=== PATIENT | male | born 1955 | race Hispanic/Latino ===

== ENCOUNTER → 2020-08-21 | Outpatient (CLI) | payer OTHER | END | disposition home or self-care (01) | LOC: RAH 11:57 | PROVIDERS: ATTEND Otolaryngology Plastic Surgery within the Head & Neck | DX: J32.4 Chronic pansinusitis (principal); J34.2 Deviated nasal septum; H66.91 Otitis media, unspecified, right ear | CPT/HCPCS: 70486 ==

== ENCOUNTER 2021-12-09 12:26 | Emergency (ER) | payer MEDICARE ==
[~2021-12-09] VITALS: Ht 182.9 cm; Wt 124.7 kg
[2021-12-09 13:05] LABS: BASOPHILS % (AUTO) 0.6 % (0.0-5.0); EOSINOPHILS % (AUTO) 3.4 % (0.0-8.0); HEMATOCRIT 46.6 % (42-54); LYMPHOCYTES % (AUTO) 17.2 % (21.0-51.0); MEAN CORPUSCULAR HEMOGLOBIN 29.4 pg (27.0-33.0); MEAN CORPUSCULAR VOLUME 92.1 fL (79-99); MONOCYTES % (AUTO) 14.1 % (3.0-13.0); NEUTROPHILS % (AUTO) 64.3 % (40.0-77.0); PLATELET COUNT (AUTO) 175 K/uL (130-400); RED BLOOD CELL COUNT(AUTO) 5.06 MIL/uL (4.50-6.20); RED CELL DISTRIBUTION WIDTH 13.5 % (11.0-15.5); WHITE BLOOD COUNT (AUTO) 10.3 K/uL (4.8-10.8)
[2021-12-09 13:21] LABS: ALBUMIN 3.8 g/dL (3.5-5.0); CREATININE 1.2 mg/dL (0.5-1.5); POTASSIUM 5.1 mmol/L (3.5-5.1); TOTAL PROTEIN, SERUM 8.4 g/dL (6.0-8.3)
[2021-12-09] MEDS ORDERED: IOHEXOL 350 MG/ML 100ML INFUS..BTL IV ONE (15:00)
[2021-12-09 15:49] VITALS: BP 154/90
== END 2021-12-09 16:14 | disposition home or self-care (01) ==
LOC: EDH 12:26
DX: R07.89 Other chest pain (principal); I10 Essential (primary) hypertension
CPT/HCPCS: 99285; 74177; 71045 ×2; 84484; 80053; 85025; 36415; 93005 ×2; Q9967

== ENCOUNTER 2021-12-13 12:36 | Emergency (ER) | payer MEDICARE ==
[~2021-12-13] VITALS: Ht 182.9 cm; Wt 122.5 kg
[2021-12-13 12:37] VITALS: BP 153/83
[2021-12-13 13:01] LABS: APPEARANCE,URINE CLOUDY (CLEAR); BILIRUBIN,URINE NEGATIVE (NEGATIVE); COLOR,URINE YELLOW (YELLOW); GLUCOSE, URINE (UA) NEGATIVE (NEGATIVE); KETONES,URINE NEGATIVE (NEGATIVE); LEUKOCYTE ESTERASE ,URINE NEGATIVE Leu/uL (NEGATIVE); NITRATE,URINE NEGATIVE (NEGATIVE); OCCULT BLOOD,URINE NEGATIVE (NEGATIVE); PROTEIN,URINE 100 mg/dL (NEGATIVE)
[2021-12-13 13:29] LABS: BACTERIA,URINE MOD /HPF (None Seen); HYALINE CASTS, URINE >100 /LPF (0-1 /LPF); MUCUS,URINE MANY LPF (None Seen); SQUAMOUS EPITHELIAL CELL,UR RARE /HPF (0-2)
== END 2021-12-13 13:19 | disposition home or self-care (01) ==
LOC: EDH 12:36
DX: Q79.1 Other congenital malformations of diaphragm (principal); I10 Essential (primary) hypertension
CPT/HCPCS: 81001; 87088

== ENCOUNTER 2022-03-15 14:35 | Observation (INO) | payer OTHER, MEDICARE ==
[~2022-03-15] VITALS: Ht 182.9 cm; Wt 127.9 kg
[2022-03-15 15:04] LABS: BASOPHILS % (AUTO) 0.6 % (0.0-5.0); EOSINOPHILS % (AUTO) 4.4 % (0.0-8.0); HEMATOCRIT 39.2 % (42-54); LYMPHOCYTES % (AUTO) 21.3 % (21.0-51.0); MEAN CORPUSCULAR HEMOGLOBIN 29.6 pg (27.0-33.0); MEAN CORPUSCULAR HGB CONC 30.9 g/dL (32.0-36.0); MEAN CORPUSCULAR VOLUME 95.8 fL (79-99); MONOCYTES % (AUTO) 10.1 % (3.0-13.0); NEUTROPHILS % (AUTO) 63.2 % (40.0-77.0); PLATELET COUNT (AUTO) 261 K/uL (130-400); RED BLOOD CELL COUNT(AUTO) 4.09 MIL/uL (4.50-6.20); RED CELL DISTRIBUTION WIDTH 15.3 % (11.0-15.5); WHITE BLOOD COUNT (AUTO) 8.2 K/uL (4.8-10.8)
[2022-03-15 15:16] LABS: POTASSIUM 4.7 mmol/L (3.5-5.1)
[2022-03-15 15:22] LABS: INR 0.93 (0.85-1.15); PROTHROMBIN TIME 10.2 SEC (9.6-11.6)
[2022-03-15 15:24] LABS: ALBUMIN 3.3 g/dL (3.5-5.0); MAGNESIUM 1.9 mg/dL (1.80-2.40); TOTAL PROTEIN, SERUM 7.1 g/dL (6.0-8.3)
[2022-03-15] MEDS ORDERED: ACETAMINOPHEN 650 MG SUPPOSITORY RC PRN (16:00)
[2022-03-15] MEDS ORDERED: HEPARIN 25,000 UNITS/250ML D5W 250 ML IV SCH (16:00)
[2022-03-15] MEDS ORDERED: ONDANSETRON 4MG INJ IVP PRN (16:00)
[2022-03-15] MEDS ORDERED: MORPHINE 4 MG SYG IVP PRN (16:00)
[2022-03-15] MEDS ORDERED: MORPHINE 2 MG SYG IVP ONE (16:00)
[2022-03-15] MEDS ORDERED: HYDRALAZINE 20MG/ML VIAL IV PRN (16:00)
[2022-03-15] MEDS ORDERED: ACETAMINOPHEN 325 MG TAB PO PRN (16:00)
[2022-03-15] MEDS ORDERED: 0.9%NACL 1000ML 1,000 ML IV SCH (16:00)
[2022-03-15] MEDS ORDERED: ASPIRIN 325MG TAB PO ONE (16:00)
[2022-03-15] MEDS ORDERED: IOHEXOL 350 MG/ML 100ML INFUS..BTL IV ONE (16:28)
[2022-03-15 18:18] LABS: AMPHET/METH SCREEN,URINE NEGATIVE (NEGATIVE); BARBITURATE SCREEN, URINE NEGATIVE (NEGATIVE); BENZODIAZEPINES SCREEN,URINE NEGATIVE (NEGATIVE); CANNABINOID SCREEN,URINE NEGATIVE (NEGATIVE); COCAINE SCREEN,URINE POSITIVE (NEGATIVE); OPIATE SCREEN,URINE NEGATIVE (NEGATIVE); PHENCYCLIDINE SCREEN,URINE NEGATIVE (NEGATIVE)
[2022-03-15 18:37] LABS: APPEARANCE,URINE CLEAR (CLEAR); BILIRUBIN,URINE NEGATIVE (NEGATIVE); COLOR,URINE LIGHT-YELLOW (YELLOW); GLUCOSE, URINE (UA) NEGATIVE (NEGATIVE); KETONES,URINE NEGATIVE (NEGATIVE); LEUKOCYTE ESTERASE ,URINE NEGATIVE Leu/uL (NEGATIVE); NITRATE,URINE NEGATIVE (NEGATIVE); OCCULT BLOOD,URINE NEGATIVE (NEGATIVE); PROTEIN,URINE NEGATIVE (NEGATIVE); UROBILINOGEN,URINE 0.2 mg/dL (0.2-1.0)
[2022-03-15 18:43] LABS: MUCUS,URINE RARE LPF (None Seen); WBC,URINE 0-1 /HPF (0-1)
[2022-03-15] MEDS ORDERED: NITROGLYCERIN 1GM OINT 1 INCH/1GM TD ONE (19:00)
[2022-03-15] MEDS: PANTOPRAZOLE 40 MG/VIAL IVP SCH (20:35)
[2022-03-15] MEDS: METOPROLOL TARTRATE 25 MG TAB PO SCH (20:35)
[2022-03-15] MEDS ORDERED: SIMVASTATIN 20 MG TABLET PO SCH (21:00)
[2022-03-15] MEDS ORDERED: MORPHINE 2 MG SYG IVP PRN (21:30)
[2022-03-16 07:04] LABS: BASOPHILS % (AUTO) 0.7 % (0.0-5.0); EOSINOPHILS % (AUTO) 3.8 % (0.0-8.0); LYMPHOCYTES % (AUTO) 21.1 % (21.0-51.0); MEAN CORPUSCULAR HEMOGLOBIN 29.4 pg (27.0-33.0); MEAN CORPUSCULAR HGB CONC 31.3 g/dL (32.0-36.0); MEAN CORPUSCULAR VOLUME 93.8 fL (79-99); MONOCYTES % (AUTO) 8.8 % (3.0-13.0); NEUTROPHILS % (AUTO) 65.3 % (40.0-77.0); PLATELET COUNT (AUTO) 248 K/uL (130-400); RED BLOOD CELL COUNT(AUTO) 4.05 MIL/uL (4.50-6.20); RED CELL DISTRIBUTION WIDTH 15.2 % (11.0-15.5); WHITE BLOOD COUNT (AUTO) 10.7 K/uL (4.8-10.8)
[2022-03-16 07:25] LABS: CREATININE 0.9 mg/dL (0.5-1.5); MAGNESIUM 2.1 mg/dL (1.80-2.40); PHOSPHORUS 3.3 mg/dL (2.5-4.9); POTASSIUM 5.1 mmol/L (3.5-5.1)
[2022-03-16 07:31] VITALS: BP 136/93
[2022-03-16] MEDS ORDERED: KAYEXALATE 15GM/60ML PO SCH (08:30)
[2022-03-16] MEDS ORDERED: CARV6.25 PO (08:34)
[2022-03-16] MEDS ORDERED: PANT40TA54 PO (08:34)
[2022-03-16] MEDS ORDERED: APIX5TAB PO (08:34)
[2022-03-16] MEDS ORDERED: FOLI0.8C PO (08:34)
[2022-03-16] MEDS ORDERED: ATOR40TA69 PO (08:34)
[2022-03-16] MEDS ORDERED: ASPI-1197 PO (08:34)
[2022-03-16] MEDS ORDERED: TRAZ-185 PO (08:34)
[2022-03-16] MEDS ORDERED: HYDR-3830 PO (08:34)
[2022-03-16] MEDS ORDERED: GABA-529 PO (08:34)
[2022-03-16] MEDS: METOPROLOL TARTRATE 25 MG TAB PO SCH (08:51)
[2022-03-16] MEDS: PANTOPRAZOLE 40 MG/VIAL IVP SCH (08:51)
[2022-03-16] MEDS ORDERED: ASCORBIC ACID 500 MG TAB PO SCH (09:00)
[2022-03-16] MEDS ORDERED: FERROUS GLUCONATE 324 TABLET PO SCH (09:00)
[2022-03-16] MEDS ORDERED: ASPIRIN 81MG CHEW TAB PO SCH (09:00)
== END 2022-03-16 09:10 | disposition home or self-care (01) ==
LOC: EDH 14:35 → INTOOBSV 15:55 → EDHIP 15:55
PROVIDERS: ADMIT Internal Medicine; ATTEND Internal Medicine
DX: R07.89 Other chest pain (principal); I10 Essential (primary) hypertension; E66.9 Obesity, unspecified; K43.9 Ventral hernia without obstruction or gangrene; F17.200 Nicotine dependence, unspecified, uncomplicated; F14.90 Cocaine use, unspecified, uncomplicated; F41.9 Anxiety disorder, unspecified; Z86.711 Personal history of pulmonary embolism; Z79.899 Other long term (current) drug therapy; Z86.73 Personal history of transient ischemic attack (TIA), and cerebral infarction without residual deficits
CPT/HCPCS: 96374; 96361 ×2; 96375; 99285; 82550 ×3; 83735 ×2; 83874 ×3; 84484 ×4; 80053; 83880; 80305; 85025 ×2; 85378; 85610; 85730; 81001; 36415 ×2; 71045; 71270; 93970; 93005; 84145; 96376; 83540; 83550; 84100; 80048; G0378 ×17; J7030; J1644; C9113 ×2; Q9967

== ENCOUNTER → 2022-04-12 | Outpatient (CLI) | payer OTHER, MEDICARE ==
[~2022-04-12] MED LIST: ASPI-1197 PO; ATOR40TA69 PO; CARV6.25 PO; FOLI0.8C PO; GABA-529 PO; HYDR-3830 PO; PANT40TA54 PO; REGADENOSON 0.4 MG/5 ML PF SYG IVP ONE; TRAZ-185 PO
== END | disposition home or self-care (01) ==
LOC: SHCH 08:38
PROVIDERS: ATTEND Internal Medicine Cardiovascular Disease
DX: R07.9 Chest pain, unspecified (principal)
CPT/HCPCS: 78452; 96374; 93017; J2785; A9500 ×2

== ENCOUNTER → 2023-03-14 | Outpatient (CLI) | payer OTHER, MEDICARE ==
[~2023-03-14] MED LIST changes: +IOHEXOL-350 50ML VIAL IV ONE; -REGADENOSON 0.4 MG/5 ML PF SYG IVP ONE
== END | disposition home or self-care (01) ==
LOC: RAH 11:21
PROVIDERS: ATTEND Family Medicine
DX: R51.9 Headache, unspecified (principal); R22.0 Localized swelling, mass and lump, head; Z87.828 Personal history of other (healed) physical injury and trauma
CPT/HCPCS: 70470; Q9967

== ENCOUNTER → 2023-03-24 | Outpatient (CLI) | payer OTHER, MEDICARE ==
[~2023-03-24] MED LIST changes: -IOHEXOL-350 50ML VIAL IV ONE
== END | disposition home or self-care (01) ==
LOC: RAH 11:14
PROVIDERS: ATTEND Family Medicine
DX: M47.22 Other spondylosis with radiculopathy, cervical region (principal)
CPT/HCPCS: 72141

== ENCOUNTER → 2023-08-07 | Outpatient (CLI) | payer OTHER, MEDICARE | END | disposition home or self-care (01) | LOC: SHCH 12:40 | PROVIDERS: ATTEND Internal Medicine Cardiovascular Disease | DX: I07.1 Rheumatic tricuspid insufficiency (principal); I27.20 Pulmonary hypertension, unspecified; I26.99 Other pulmonary embolism without acute cor pulmonale; Z86.711 Personal history of pulmonary embolism | CPT/HCPCS: 93306 ==

== ENCOUNTER 2024-11-17 14:19 | Emergency (ER) | payer OTHER, MEDICAID ==
[~2024-11-17] VITALS: Ht 182.9 cm; Wt 104.3 kg
[~2024-11-17 14:19] MED LIST changes: +ALPR0.5T8 PO; +APIX5TAB PO; -ASPI-1197 PO; +BUSP30TA2 PO; +FLUC100T12 PO; -FOLI0.8C PO; -GABA-529 PO; +GABA300C PO; -HYDR-3830 PO; +LEVO750T68 PO; +LUMA42CA4 PO; +METR-172 PO; +OMEP40CA21 PO; -PANT40TA54 PO; -TRAZ-185 PO; +TRAZ-187 PO
[2024-11-17 15:12] LABS: IMMATURE GRANULOCYTE ABSOLUTE 0.02 K/uL (0-1); NUCLEATED RED BLOOD CELLS 0.0 % (0.0-0.19); PLATELET COUNT (AUTO) 167 K/uL (130-400); RED BLOOD CELL COUNT(AUTO) 5.19 MIL/uL (4.50-6.20); RED CELL DISTRIBUTION WIDTH 17.2 % (11.0-15.5); WHITE BLOOD COUNT (AUTO) 8.2 K/uL (4.8-10.8)
--- NOTE | 2024-11-17 15:18 | EKG ---
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
--- NOTE | 2024-11-17 15:26 | ERN ---
General Chief Complaint: Hypertension Stated Complaint: ELEVATED BP Time Seen by MD: 14:23 Source: patient History of Present Illness Initial Comments Patient is a 68-year-old male coming in complaining of elevated blood pressure. Per patient he noticed his blood pressure in the 190s and decided to come in for further evaluation. Allergies: Coded Allergies: No Known Drug Allergies (Verified Allergy, Unknown, 06/07/21) Home Meds Active Scripts Metronidazole (Metronidazole) 500 Mg Tablet, 500 MG PO Q8H, #21 TAB Prov:MAK MACIAS PA 10/22/24 Levofloxacin (Levaquin 750Mg Tabs) 750 Mg Tablet, 750 MG PO Q24H, #7 TAB Prov:MAK MACIAS 10/22/24 Fluconazole (Fluconazole) 100 Mg Tablet, 400 MG PO DAILY, #7 TAB Prov:MAK MACIAS PA 10/22/24 Reported Medications Alprazolam (Alprazolam) 0.5 Mg Tablet, 1 TAB PO [id number] PRN for ANXIETY/AGITATION for 30 Days, #60 TAB 0 Refills 10/13/24 Trazodone HCl (Trazodone HCl) 100 Mg Tablet, 1 TAB PO HS for 30 Days, #30 TAB 0 Refills 10/13/24 Gabapentin (Neurontin) 300 Mg Capsule, 1 CAP PO TID for 30 Days, #90 CAP 0 Refills 10/13/24 Buspirone HCl (Buspirone HCl) 30 Mg Tablet, 30 MG PO TID, TAB 10/13/24 Omeprazole (Omeprazole) 40 Mg Capsule.dr, 1 CAP PO DAILY for 30 Days, #30 CAP 0 Refills 10/13/24 Lumateperone Tosylate (Caplyta) 42 Mg Capsule, 1 CAP PO DAILY for 30 Days, #30 CAP 0 Refills WITH MEALS 10/13/24 Apixaban (Eliquis) 5 Mg Tablet, 1 TAB PO BID for 30 Days, #60 TAB 0 Refills 10/13/24 Carvedilol (Carvedilol) 6.25 Mg Tablet, 6.25 MG PO BID, TAB 03/16/22 Atorvastatin Calcium (LIPITOR) 40 Mg Tablet, 40 MG PO DAILY, TAB 03/16/22 Past Medical History Past Medical History: Diverticulitis, High Cholesterol, Hypertension Medical History Other: PE, LOWER EXT DVT, PULMONARY HTN, Past Surgical History: None Surgical History Other: HERNIA REPAIR Social History Social History: Negative, Lives with family ROS Dictation CONSTITUTIONAL: No chills, no fever, no weakness, no diaphoresis, no malaise. HEAD/FACE: No signs of trauma. EENT: No eye pain, no blurred vision, no tearing, no double vision, no ear pain, no ear discharge, no nose pain, no nasal congestion, no throat pain, no throat swelling, no mouth pain. RESPIRATORY: No cough, no orthopnea, no SOB, no stridor, no wheezing. CARDIOVASCULAR: No chest pain, no edema, no palpitations, no syncope. GASTROINTESTINAL/ABDOMINAL: No abdominal pain, no constipation, no diarrhea, no nausea, no vomiting. GENITOURINARY: No abnormal discharge, no dysuria, no frequent urination, no hematuria. No complaints of pain in the genitals. MUSCULOSKELETAL: No back pain, no gout, no joint pain, no joint swelling, no muscle pain, no muscle stiffness, no neck pain. INTEGUMENTARY: No change in color, no change in hair/nails, no dryness, no lesion, no lumps, no rash. NEUROLOGICAL/PSYCH: No anxiety, not depressed, no emotional problem, no headache, no numbness, no pre-existing deficit, no history of seizures, no tremors, no weakness. HEMATOLOGIC/LYMPHATIC: Not anemic, no history of blood clots, no apparent bleeding, no bruising, glands not swollen. All Systems Negative, Except as Noted. Physical Exam Physical Exam Dictation VITAL SIGNS: Reviewed. GENERAL APPEARANCE: Alert, oriented x3, no acute distress, obese. HEAD AND FACE: Non-traumatic. EYES: PERRL, pink conjunctivas, eyelid no trauma, anterior chamber clear. EARS: Pinnas intact and no signs of trauma or erythema. Ear canals clear and no discharge. TMs no erythema. NOSE: No discharge, no bleeding. OROPHARYNX: Mouth normal, teeth no caries, tongue pink. Pharynx clear, no erythema. Tonsils no exudates, no abscesses noted. Mucous membrane moist. NECK: Supple, non-tender, no thyromegaly, no masses, no JVD, no bruits. BREAST: Deferred. CHEST: No tenderness, no crepitus, no paradoxical movement, no retractions. LUNGS: Clear, well-ventilated, symmetric, no rales, no wheezing, no rhonchi, no stridor, good breath sounds bilaterally. HEART: Regular rate, regular rhythm, no murmur, no gallops. VASCULAR: No peripheral edema. ABDOMEN: Soft, positive bowel sounds, nondistended, no guarding, nontender, no rebound, no masses no hepatomegaly, no splenomegaly, no Polanco's sign, no hernias. RECTAL: Deferred. GENITAL: Deferred. NEUROLOGICAL: Normal speech, gross motor function intact, gross sensory function intact. MUSCULOSKELETAL: Neck nontender, full range of motion, back nontender, full range of motion. EXTREMITIES: Nontender, full range of motion. SKIN: Color pink, dry, no turgor, no rash, no lacerations, no abrasions, no contusions. LYMPHATICS: Deferred. Results Laboratory and Microbiology Lab and Micro Result Laboratory Tests Test 11/17/24 15:02 11/17/24 15:27 White Blood Count 8.2 K/uL (4.8-10.8) Red Blood Count 5.19 MIL/uL (4.50-6.20) Hemoglobin 15.3 g/dL (14.0-18.0) Hematocrit 47.1 % (42-54) Mean Corpuscular Volume 90.8 fL (79-99) Mean Corpuscular Hemoglobin 29.5 pg (27.0-33.0) Mean Corpuscular Hemoglobin Concent 32.5 g/dL (32.0-36.0) Red Cell Distribution Width 17.2 % (11.0-15.5) H Platelet Count 167 K/uL (130-400) Mean Platelet Volume 12.5 fL (7.5-10.5) H Immature Granulocyte % (Auto) 0.2 % (0-1) Neutrophils (%) (Auto) 68.4 % (40.0-77.0) Lymphocytes (%) (Auto) 18.0 % (21.0-51.0) L Monocytes (%) (Auto) 9.5 % (3.0-13.0) Eosinophils (%) (Auto) 3.2 % (0.0-8.0) Basophils (%) (Auto) 0.7 % (0.0-5.0) Neutrophils # (Auto) 5.6 K/uL (1.8-7.7) Lymphocytes # (Auto) 1.5 K/uL (1.0-4.8) Monocytes # (Auto) 0.8 K/uL (0.1-1.0) Eosinophils # (Auto) 0.26 K/uL (0.00-0.70) Basophils # (Auto) 0.06 K/uL (0.00-0.20) Absolute Immature Granulocyte (auto 0.02 K/uL (0-1) Nucleated Red Blood Cells 0.0 % (0.0-0.19) Sodium Level 140 mmol/L (136-145) Potassium Level 3.5 mmol/L (3.5-5.1) Chloride Level 101 mmol/L (101-111) Carbon Dioxide Level 29 mmol/L (21-32) Blood Urea Nitrogen 12 mg/dL (7-18) Creatinine 0.7 mg/dL (0.5-1.3) Glomerular Filtration Rate Calc 99 mL/min (>90) Random Glucose 99 mg/dL (70-105) Total Calcium 9.0 mg/dL (8.5-10.1) Magnesium Level 1.70 mg/dL (1.80-2.40) L Total Creatine Kinase 198 U/L (21-232) Troponin I High Sensitivity 15 ng/L (4-75) Urine Color YELLOW (YELLOW) Urine Appearance CLEAR (CLEAR) Urine pH 6.0 (5.0-8.0) Urine Specific [place] 1.012 (1.001-1.031) Urine Protein NEGATIVE mg/dL (NEGATIVE) Urine Glucose (UA) NEGATIVE mg/dL (NEGATIVE) Urine Ketones 10 mg/dL (NEGATIVE) H Urine Occult Blood NEGATIVE (NEGATIVE) Urine Nitrate NEGATIVE (NEGATIVE) Urine Bilirubin NEGATIVE mg/dL (NEGATIVE) Urine Urobilinogen 0.2 mg/dL (0.2-1.0) Urine Leukocyte Esterase NEGATIVE Ky/uL Urine RBC 0-1 /HPF (0-1) Urine WBC 0-1 /HPF (0-1) Urine Bacteria None /HPF (None Seen) Labs Reviewed?: Yes EKG/XRAY/US/CT/MRI EKG Comment 11/17/2024 time 3:11 p.m. Ventricular rate 63 Sinus rhythm [place] [address] wave elevation or depression X-RAY Comment IMAGING REPORT Signed PATIENT: OMARI MITCHELL MR#: [id number] : 1955 SEX: M AGE: 68 LOCATION: [facility] ORDER [id number] STATUS: REG ER REPORT#: [id number] SERVICE [id number] REASON: htn ORDERING PHYSICIAN: AJITH STEWARD MD PROCEDURE: CXR1VW - CHEST 1VW EXAM: CR Chest, 1 View. CLINICAL HISTORY: htn COMPARISON: Radiograph dated October 19, 2024 FINDINGS: LUNGS: There is no mass, infiltrate, or acute pulmonary abnormality. Mild bibasilar airspace disease may reflect atelectasis. PLEURAL SPACES: No pleural effusion or pneumothorax. MEDIASTINUM: Cardiac size and mediastinal contours within normal limits. Relatively unchanged elevation of the left hemidiaphragm. BONES: No acute osseous abnormality. IMPRESSION: No acute cardiopulmonary pathology is evident. /[place] DICTATED BY: KARSON SCHMIDT Jr., MD DATE: 11/17/24 163 ELECTRONICALLY SIGNED BY: KARSON SCHMIDT Jr., MD DATE: 11/17/24 163 [facility] MDM: Differential diagnosis: Elevated blood pressure episode, history of hypertension, Rationale: Tests considered and ordered secondary to shared decision making include: Previous outside records reviewed: Old ER visits. Risk of complication and/or morbidity or mortality of patient management: None Medications-Per medication reconciliation Need for hospitalization: Patient does not meet criteria for hospitalization. Need for emergency major/minor surgery: No Patient is a 68-year-old male coming in due to elevated blood pressure. Blood pressure initially was in the 166 systolic laboratory workup within normal limits. I advised him on vital signs and laboratory workup we will be discharged in stable condition I also advised him appropriate follow up with PCP. ED Course Orders Procedure Category Date Status Time Cbc With Differential LAB 11/17/24 Complete 14:48 Chest 1vw RAD 11/17/24 Resulted 14:48 12 Lead Ekg Tracing- EKG 11/17/24 Complete Technical 14:48 Magnesium LAB 11/17/24 Complete 14:48 Creatine Kinase, Total LAB 11/17/24 Complete 14:48 Troponin I High LAB 11/17/24 Complete Sensitivity 14:48 Urinalysis Profile LAB 11/17/24 Complete 14:48 Basic Metabolic Panel LAB 11/17/24 Complete 14:48 Vital Signs Date Time Temp Pulse Resp B/P (MAP) Pulse Ox O2 Delivery O2 Flow Rate FiO2 11/17/24 14:24 97.3 63 19 166/88 95 Room Air 0 DX & DISP Disposition: Discharge Departure Impression: Primary Impression: Episode of hypertension Condition: Stable Additional Instructions: You have been reviewed in the emergency department at [facility] after presenting with chest pain. After considering your history, your risk factors, your EKG and your blood test troponins, have been found to be at very low risk less than (1 in 100) of having a major adverse cardiac event (like heart attack) in the near future. In the " low risk" group, the risks of doing further tests and treatment as the inpatient outweighs the benefits. In many patients in the low risk group for the test of any sort or unnecessary, however he should discuss this further with his general practitioner who will understand the medical and personal backgrounds better. Because we have never declared you" no risk" we would suggest. 1 returning for medical review if you have further episodes of chest pain/arm pain or other concerning symptoms like dizziness, collapse, palpitations or shortness of breath. 2. Following up with your local doctor who will consider the need for further testing and will also ensure that any modifiable risk factors you may have for heart disease are optimally managed. Patient will be discharged in stable condition at the moment discharge patient states , no chest pain Referrals: BECKY GUADALUPE MD (PCP) Time of Disposition: 16:12 AJITH STEWARD MD Nov 17, 2024 15:26
[2024-11-17 15:29] LABS: CREATININE 0.7 mg/dL (0.5-1.3); GLOMERULAR FILTR. RATE CALC 99.0 mL/min (>90); GLUCOSE,RANDOM 99.0 mg/dL (70-105); SODIUM SERUM 140.0 mmol/L (136-145); UREA NITROGEN, BLOOD 12.0 mg/dL (7-18)
--- NOTE | 2024-11-17 15:31 | HMCIMG ---
EXAM: CR Chest, 1 View. CLINICAL HISTORY: htn COMPARISON: Radiograph dated October 19, 2024 FINDINGS: LUNGS: There is no mass, infiltrate, or acute pulmonary abnormality. Mild bibasilar airspace disease may reflect atelectasis. PLEURAL SPACES: No pleural effusion or pneumothorax. MEDIASTINUM: Cardiac size and mediastinal contours within normal limits. Relatively unchanged elevation of the left hemidiaphragm. BONES: No acute osseous abnormality. IMPRESSION: No acute cardiopulmonary pathology is evident. /[place]
[2024-11-17 15:35] LABS: APPEARANCE,URINE CLEAR (CLEAR); GLUCOSE, URINE (UA) NEGATIVE (NEGATIVE); LEUKOCYTE ESTERASE ,URINE NEGATIVE Leu/uL (NEGATIVE); NITRATE,URINE NEGATIVE (NEGATIVE); OCCULT BLOOD,URINE NEGATIVE (NEGATIVE)
[2024-11-17 15:38] LABS: CREATINE KINASE, TOTAL 198.0 U/L (21-232)
[2024-11-17 15:44] LABS: ADD UA MICROSCOPIC YES
[2024-11-17 16:29] VITALS: BP 163/93; PULSE 63; RESP 18; TEMP 98.7; O2SAT 98
--- NOTE | 2024-11-17 16:37 | NUR ---
PT AAOX4 STABLE NO C/O PAIN PT STATES HIS BP IN BETTER THAN IT WAS WHEN HE FIRST GOT HERE. PT GIVEN INSTRUCTIONS BY DR BIN MONCADAED UNDERSTANDING. PT HAS NO IV NOW, PT STATES HE IS HUNGRY WANTS TO GO EAT, GIVEN INSTRUCTIONS. PT DRIVEN HOME BY SPOUSE.
== END 2024-11-17 16:39 | disposition home or self-care (01) ==
LOC: EDH 14:19
DX: I10 Essential (primary) hypertension (principal); E78.00 Pure hypercholesterolemia, unspecified; Z79.01 Long term (current) use of anticoagulants; Z79.899 Other long term (current) drug therapy; Z86.718 Personal history of other venous thrombosis and embolism; Z98.890 Other specified postprocedural states
CPT/HCPCS: 36415; 71045; 80048; 81001; 82550; 82948; 83735; 84484; 85025; 93005; 99285

== ENCOUNTER 2024-12-02 12:00 | Inpatient (IN) | payer OTHER, MEDICAID ==
[~2024-12-02] VITALS: Ht 182.9 cm; Wt 99.8 kg
[~2024-12-02 12:00] MED LIST changes: -FLUC100T12 PO; -LEVO750T68 PO; -LUMA42CA4 PO; -METR-172 PO; -OMEP40CA21 PO
[2024-12-02 12:37] VITALS: BP 111/64; PULSE 75; RESP 17; TEMP 97.3
[2024-12-02 12:37] LABS: IMMATURE GRANULOCYTE ABSOLUTE 0.03 K/uL (0-1); NUCLEATED RED BLOOD CELLS 0.0 % (0.0-0.19); PLATELET COUNT (AUTO) 244 K/uL (130-400); RED BLOOD CELL COUNT(AUTO) 5.34 MIL/uL (4.50-6.20); RED CELL DISTRIBUTION WIDTH 17.0 % (11.0-15.5); WHITE BLOOD COUNT (AUTO) 8.3 K/uL (4.8-10.8)
--- NOTE | 2024-12-02 12:40 | EKG ---
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
[2024-12-02 12:46] LABS: INR 1.09 (0.85-1.15)
[2024-12-02 12:54] LABS: ASPARTATE AMINOTRANSFERASE 37.0 U/L (10-37); CREATININE 0.8 mg/dL (0.5-1.3); GLOMERULAR FILTR. RATE CALC 95.0 mL/min (>90); GLUCOSE,RANDOM 107.0 mg/dL (70-105); SODIUM SERUM 139.0 mmol/L (136-145); TOTAL PROTEIN, SERUM 8.1 g/dL (6.0-8.3); UREA NITROGEN, BLOOD 21.0 mg/dL (7-18)
[2024-12-02] MEDS ORDERED: IRON PO (14:12)
[2024-12-02] MEDS ORDERED: LUMA42CA4 PO (14:12)
[2024-12-02] MEDS ORDERED: PLEC3TAB2 PO (14:12)
[2024-12-02] MEDS ORDERED: NITR0.4T50 SL (14:12)
[2024-12-02] MEDS ORDERED: LINA290C PO (14:12)
[2024-12-02] MEDS ORDERED: CIPR500S4 PO (14:12)
[2024-12-02] MEDS ORDERED: ONDA-243 PO (14:12)
[2024-12-02] MEDS ORDERED: LOSA50TA64 PO (14:12)
--- NOTE | 2024-12-03 12:14 | NUR ---
report dr lemos informed of potassium level. received orders to repeat in am.
--- NOTE | 2024-12-03 15:00 | NUR ---
REPORT REPORTED TO CHRISTIAN THAT PATIENT TOOK ELIQUIS ON 12/02/24 AT 0700. OKAY TO PROCEED WITH SURGERY PER CHRISTIAN.
[2024-12-04] VITALS (20 sets, daily range): BP systolic 129–162; BP diastolic 68–86; PULSE 66–98; RESP 15–21; TEMP 97.7–98.1; O2SAT 98–99
[2024-12-04] MEDS: INVANZ 1GM+NS 50ML IVPB 50 ML IV ONE (07:00)
[2024-12-04] MEDS: LACTATED RINGERS 1000ML 1,000 ML IV ONE (07:02)
[2024-12-04] MEDS ORDERED: LIDOCAINE 1%-EPI 1:100,000 20 ML VIAL ONE (09:29)
[2024-12-04] MEDS ORDERED: SUCCINYLCHOLINE CHLORIDE 20 MG/ML 10 ML VIAL ONE (10:05)
[2024-12-04] MEDS ORDERED: LIDOCAINE PF 100MG/5ML (2%) SYRINGE 5ML ONE (10:05)
[2024-12-04] MEDS ORDERED: MIDAZOLAM HCL 1 MG/ML 2ML VIAL ONE (10:06)
[2024-12-04 10:08] LABS: AMPHET/METH SCREEN,URINE NEGATIVE (NEGATIVE); BARBITURATE SCREEN, URINE NEGATIVE (NEGATIVE); CANNABINOID SCREEN,URINE POSITIVE (NEGATIVE); COCAINE SCREEN,URINE NEGATIVE (NEGATIVE)
[2024-12-04] MEDS: SUGAMMADEX SODIUM 200 MG/2 ML VIAL IV ONE (10:26)
--- NOTE | 2024-12-04 11:44 | OP ---
Operative Note: DATE OF PROCEDURE: 12/04/24 SURGEON: MARINA ABREU MD HAIR AND MAKEUP DESIGNER: [None] ANESTHESIA: [General Endotracheal anesthesia] ANESTHESIOLOGIST/CLOTHING EXAMINER: [] PREOPERATIVE DIAGNOSIS: [Complicated diverticulitis] POSTOPERATIVE DIAGNOSIS: [Complicated diverticulitis. Extensive Adhesions. Omental mass.] SYNOPSIS: [Good blood flow to anastomosis. This was noted on firefly after ICG was injected. No leak from anastomosis. Extensive Adhesions. Omental mass.] PROCEDURE: [1. Robotic low anterior resection. 2. Robotic partial omental resection. 3. IV ICG administration for the anastomosis graft assessment. 4. Flexible sigmoidoscopy. 5. Robotic Extensive Lysis of Adhesions, Greater than 1 hour, extended procedural service atypical for this case.] ESTIMATED BLOOD LOSS: [30 mL] INDICATIONS: [The patient is a very pleasant 68-year-old male presents to the office with complicated diverticulitis. He and his family were offered operative management. The complications, risks alternatives and benefits were discussed with him in detail. Risks include infection, bleeding, injury to surrounding structures, injury to the ureter, need for further surgery, leak from anastomosis, need for stoma, poor bowel function and recurrence of disease. All questions were answered to their satisfaction and they all wished to proceed with the operation.] DESCRIPTION OF PROCEDURE: [The patient is brought to the operating theater and placed supine on the operating table. After appropriate general endotracheal anesthesia was administered and IV antibiotics given the patient is placed in the low lithotomy position. The abdomen was prepped and draped in appropriate sterile surgical fashion. Local anesthetic was injected in the Veress needle was used to insufflate the abdomen. The Optiview technique was then used to enter the abdomen without any injury to surrounding structures. The abdomen was explored and there was no evidence of metastatic disease. Four other trocars were placed under direct visualization without injury. A Pfannenstiel incision was created and the peritoneal cavity was entered and a wound protractor was placed. The robot was docked in the usual sterile fashion. The patient had extensive adhesions from prior surgery. These were lysed with sharp dissection and electrocautery where appropriate. Attention was drawn to the left colon was mobilized along the white line of Toldt. The left ureter was identified and preserved. Superior hemorrhoidal vessels were isolated and stapled. The remainder of the mesentery was ligated with the vessel sealer. The bowel was then transected at the descending colon and the upper rectum. The end-to-side anastomosis was created with the 29 EEA stapler. An amniotic graft was utilized to assist in healing. The firefly was utilized to assure good blood flow to the anastomosis at the time of transsection as well at the time of anastomosis after ICG was injected. Excellent blood flow was noted. There was no complications. Excellent hemostasis was achieved. The anastomosis was tested several times without evidence of leak. A flexible sigmoidoscopy was performed and the anastomosis was intact, not leaking, not bleeding and patent. The omentum was noted to have a mass so this was resected with the vessel sealer achieving a partial omentectomy. A drain was placed in the pelvis. Hemostatic agent was utilized in the abdomen. The fascia was closed with 1. PDS. The fascia for the 12 mm trocar was closed with 0 Vicryl. Skin incisions were closed with Monocryl. There were no complications. The instrument, sponge and needle count reported as correct x2 by nursing staff.] MARINA ABREU MD Dec 04, 2024 11:44
[2024-12-04] MEDS: LIDOCAINE 1%-EPI 1:100,000 20 ML VIAL IJ ONE (11:49)
[2024-12-04] MEDS ORDERED: D5W-1/2 NS/20MEQ KCL 1,000 ML IV SCH (12:00)
[2024-12-04] MEDS: INDOCYANINE GREEN 25 MG VIAL IJ ONE ×2 (13:30→14:27)
[2024-12-04] MEDS: ALBUTEROL 0.083% 2.5 MG/3 ML INH IH SCH (14:00)
--- NOTE | 2024-12-04 17:15 | NUR ---
ARRIVAL TO 3RD PATIENT ARRIVED TO 3RF FLOOR. PATIENT IS STILL UNDER THE EFFECTS OF ANESTHESIA, STUPOROUS. VITAL SIGNS STABLE. NO APPARENT DISTRESS AT THIS TIME. THE PATIENTS ABDOMEN WAS VISUALIZED, 4 INCISIONS CLEAN AND DRY, RAFITA DRAIN INTACT. WILL CONTINUE TO MONITOR
[2024-12-04] MEDS ORDERED: NITROGLYCERIN 0.4 MG SL TAB SL SCH (17:30)
--- NOTE | 2024-12-04 18:40 | CONS ---
[facility] CONSULTATION NOTE Date of Service: Dec 04, 2024 Reason for Consultation: [ Medical Management] Requesting Physician: [ Dr. De Oliveira] HISTORY OF PRESENT ILLNESS: Date of service: 12/04/2024, patient was seen in [facility] [place] room 309 68-year-old male with underlying history of COPD, chronic tobacco use disorder, prior history of pulmonary embolism x2 maintained on chronic anticoagulation with Eliquis, chronic hypoxemic respiratory failure on supplemental O2 therapy, history of gastritis, prior history of perforated diverticulitis in 09/2024 with complicated diverticulitis. 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 Patient was seen postoperatively, patient has expected postoperative abdominal pain. Patient denies any active chest pain or shortness of breath. Abdominal pain is moderate in intensity and patient reports feeling some mild nausea. Patient does have underlying history of hypertension, he has previous history of pulmonary embolism and is maintained on chronic anticoagulation with Eliquis. He is followed by pulmonology in [place]. Reports having had two prior episodes of PE. Last dose of Eliquis was two days ago. Patient reports having his tree of respiratory failure and has been maintained on home oxygen therapy. He has chronic history of significant smoking and smokes about two packs a day. Continue to monitor this patient closely, we will see how patient progresses in the next 24-48 hours. We will have pulmonology follow this patient along due to underlying pulmonary comorbidities. Anticoagulation with Eliquis will be held today as patient just had major intra-abdominal surgery today. We will have Surgical Service follow up on this patient and we will await when patient can be started back on anticoagulation in the next 24-48 hours. REVIEW OF SYSTEMS CONSTITUTIONAL: Denies fevers, chills, or night sweats. No unintentional weight loss reported. NEUROLOGICAL: Denies headache, amaurosis fugax, motor weakness, sensory defic it, vertigo/spinning sensation, gait abnormalities, or tremors. ENT: No hearing loss, otalgia, otorrhea, rhinitis, rhinorrhea, hoarseness, or sore throat. CARDIOVASCULAR: Denies any exertional angina, dyspnea on exertion, orthopnea, paroxysmal nocturnal dyspnea, palpitations, life-threatening arrhythmias, claudication. PULMONARY: Denies any shortness of breath, cough, phlegm/sputum, hemoptysis, pleuritic chest pain. SLEEP: Denies morning headaches, daytime somnolence or napping. Denies difficulty falling asleep, staying asleep, waking from sleep. Denies knowledge of snoring. GASTROINTESTINAL: Postoperative abdominal pain and nausea as expected GENITOURINARY: Denies frequency, urgency, nocturia, hematuria or incontinence (Storage/Irritative symptoms.) Low urinary stream, straining to void, urinary intermittency or hesitancy, splitting of the voiding stream, terminal dribbling. ENDOCRINOLOGIC: Denies polyuria, polydipsia, polyphagia or heat/cold intolerances. HEMATOLOGIC: Denies thrombophilia/previous clots, or coagulopathy/bleeding disorders. ONCOLOGIC: Denies personal history of malignancy. DERMATOLOGIC: Denies rashes or pruritus. PSYCHIATRIC: Denies any suicidal or homicidal ideation. Denies hallucinations. PAST MEDICAL HISTORY: Hypertension, hemorrhoids, arthritis, depression, anxiety, history of bipolar disorder, history of pulmonary embolism maintained on chronic anticoagulation with Eliquis, GERD, gastritis, recent history of complicated diverticulitis in 09/2024, chronic hypoxemic respiratory failure PAST SURGICAL HISTORY: Previous surgeries including abdominal hernia repair, lysis of abdominal adhesions in 07/2022, history of abdominal surgery at the age of 9 PAST SOCIAL HISTORY: Denies active drinking, reports smoking two packs a day for long time FAMILY HISTORY: Denies history of previous GI malignancy Allergies: No known drug allergies Home medications: Linactolide 290 mcg p.o. daily, losartan 50 mg daily, Caplyta 42 mg daily, nitroglycerin PRN, Trulance 3 mg daily, iron tablet 45 mg daily, Xanax 0.5 mg q.12h p.r.n., apixaban 5 mg twice daily, buspirone 30 mg t.i.d., gabapentin 300 mg t.i.d., trazodone 100 mg at bedtime, Lipitor 40 mg daily, carvedilol Coded Allergies: No Known Drug Allergies (Verified Allergy, Unknown, 06/07/21) PHYSICAL EXAM GENERAL APPEARANCE: The patient is awake, alert, currently on 3 L of O2 supplementation by nasal canula NEUROLOGICAL: Cranial nerves II-XII grossly intact. patient is moving both upper and lower extremities with no focal deficits, through exam was not performed as patient is post operative and is having post operative pain HEENT: Face is symmetric. Pupils are equal and reactive. Extraocular movements are intact. NECK: Supple. No JVD. No thyromegaly. No submental, submandibular, pre- /postauricular, occipital or supraclavicular lymphadenopathy. CHEST: Normal chest expansion. No Telemetry. LUNGS: Absence of any rales, rhonchi or any wheezing. CARDIOVASCULAR: Regular. S1 and S2 normal. No appreciable rubs, murmurs or gallops. ABDOMEN: Soft, nontender, and nondistended. There is no rebound, voluntary guarding, or rigidity. : Deferred. No Randall. EXTREMITIES: Non-edematous and not cyanotic. No clubbing. Good capillary refill. SKIN: No skin breakdown. Vital Sign (Last 24 Hours) 12/04/24 17:15 Temp 98.1 Pulse 68 Resp 15 B/P (MAP) 150/81 Pulse Ox 94 O2 Delivery Nasal Cannula O2 Flow Rate 3.0 FiO2 28 LABS: Laboratory: Test 12/04/24 09:53 12/04/24 07:55 Range/Units Urine Opiates Screen NEGATIVE NEGATIVE Urine Barbiturates Screen NEGATIVE NEGATIVE Urine Phencyclidine Screen NEGATIVE NEGATIVE Urine Amphetamines Screen NEGATIVE NEGATIVE Urine Benzodiazepines Screen POSITIVE H NEGATIVE Urine Cocaine Screen NEGATIVE NEGATIVE Urine Marijuana (THC) Screen POSITIVE H NEGATIVE Potassium Level 4.8 3.5-5.1 mmol/L DIAGNOSTICS / RADIOLOGY: SERVICE 1448 REASON: htn ORDERING PHYSICIAN: AJITH STEWARD MD PROCEDURE: CXR1VW - CHEST 1VW EXAM: CR Chest, 1 View. CLINICAL HISTORY: htn COMPARISON: Radiograph dated October 19, 2024 FINDINGS: LUNGS: There is no mass, infiltrate, or acute pulmonary abnormality. Mild bibasilar airspace disease may reflect atelectasis. PLEURAL SPACES: No pleural effusion or pneumothorax. MEDIASTINUM: Cardiac size and mediastinal contours within normal limits. Relatively unchanged elevation of the left hemidiaphragm. BONES: No acute osseous abnormality. IMPRESSION: No acute cardiopulmonary pathology is evident. /Beatrice DICTATED BY: KARSON SCHMIDT Jr., MD DATE: 11/17/24 1631 ELECTRONICALLY SIGNED BY: KARSON SCHMIDT Jr., MD DATE: 11/17/24 1636 ASSESSMENT: Complicated diverticulitis status post robotic low anterior resection with anastomosis, 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 De Oliveira, 12/04/2024 History of chronic hypoxemic respiratory failure on home supplemental O2 therapy, POA History of bipolar disorder, POA History of generalized anxiety disorder, POA History of chronic tobacco use disorder, POA COPD, POA History of pulmonary embolism x2 on chronic anticoagulation with Eliquis, POA Hypertension, POA Hyperlipidemia, POA GERD, POA History of gastritis, POA PLAN: Patient will continue with admission and close monitoring in medical-surgical floor under telemetry monitoring Continue with IV fluids and IV pain control per Colorectal surgery services We will start patient on scheduled Pulmicort and DuoNebs p.r.n. q.6 hours Continue to hold Eliquis today as patient is postoperative We will defer to Surgical Service about resuming Eliquis in the next 24-48 hours, patient does have underlying history of pulmonary embolism previously Due to underlying pulmonary comorbidities, we will have pulmonology follow this patient Continue with antihypertensive therapy with carvedilol 6.25 mg b.i.d., losartan 50 mg daily, we will start patient on IV hydralazine q.6 hours p.r.n. for SBP greater than 170 Continue with p.r.n. antiemetics Continue with rest of the home medications, continue with antipsychotic therapy, continue with Xanax 0.5 mg q.12h PRN to reduce risk of benzodiazepine withdrawal All labs will be repeated in the morning, we will monitor potassium trend closely We will see how patient progresses in the next 24-48 hours Plan of care was discussed with the patient at bedside, Rikki Smith MD Advanced Care Planning: Which of the following were discussed: Hospice care: Yes __ No _X_ Therapeutic options: Yes _X_ No __ Advance directives: Yes _X_ No __ Other discussions: Discussed with who?: Patient Voluntary nature of this service was explained to the patient? Yes _x_ No __ Amount of time spent: 20 minutes RIKKI SMITH MD Dec 04, 2024 18:40
[2024-12-04] MEDS: BUDESONIDE 0.5 MG/2 ML INH IH SCH (18:58)
[2024-12-04] MEDS: DEXTROSE 5 %-0.45 % NACL 1,000 ML IV SCH (19:13)
--- NOTE | 2024-12-04 19:54 | CONS ---
[facility] CONSULTATION NOTE Date Patient Seen: Dec 04, 2024 Time of Visit: 19:53 Supervising Physician:Dr Felipe Santiago Reason for Consultation: [COPD Consulting Physician: [Hospitalist Outpatient Specialists: [ ] Inpatient Consults: [ ] PROBLEM LIST: Acute on chronic respiratory failure, POA COPD, POA O2 dependency, usually uses 2-1/2 L of oxygen per nasal cannula at home Tobacco use, smoked one pack per three days Omental mass, status post robotic partial omental resection, adhesiolysis, and anastomosis 12/04 History of pulmonary embolism, on chronic anticoagulation with Eliquis PLAN: Admit per primary Continue O2 therapy Keep O2 saturation above 90% Incentive spirometry Aspiration precautions Keep head of bed above 30 DuoNeb q.6 Budesonide neb b.i.d. Deep breathing exercises Rest of plan care of primary/surgery HPI: 68-year-old male with past medical history of pulmonary embolism on chronic anticoagulation with Eliquis, COPD on home O2 use, hypertension, hyperlipidemia, chronic tobacco use who presented to ED for a scheduled surgery with Dr. De Oliveira. Apparently patient was diagnosed with complicated diverticulitis with extensive adhesions and omental mass. He presented today for scheduled robotic low anterior resection with omental mass resection, DCS of adhesion, with anastomosis. Intraoperative course was uneventful, without any immediate complication. Was asked to evaluate patient for acute on chronic respiratory failure and COPD management. Patient was seen and examined in his room with no relatives present at bedside. At present patient is currently on2 L of oxygen with O2 saturation of 95%, not in acute respiratory distress, he is hemodynamically stable, GCS 15 , able to answer questions appropriately. Denies any headache, chest pain, shortness of breath, but complains of abdominal tenderness likely related to incision. On auscultation there is mild coarse lung sounds on left lower lung field. Patient is a current day smoker, usually smoked one pack per three days, drinks occasionally, and denies any illicit drug use. PAST MEDICAL HX: see above PAST SURGICAL HX: noncontributory SOCIAL HISTORY: See HPI Coded Allergies: No Known Drug Allergies (Verified Allergy, Unknown, 06/07/21) REVIEW OF SYSTEMS: 12 point ROS reviewed with patient. Pertinent positives mentioned above. Otherwise negative. PHYSICAL EXAM: GENERAL: alert, weak, awake oriented x 3 HEENT: EOMI, Sclera non icteric, moist mucosa NECK: Supple, no JVD, trachea midline LUNGS: Coarse lung sounds left lung aguirre HEART: Regular rate and rhythm. Normal S1 and S2, without murmurs ABD: With abdominal incision, with tenderness EXT: No clubbing cyanosis or edema NEURO: Alert and oriented to person, follows commands Vital Signs (last 8hr) Date Time Temp Pulse Resp B/P (MAP) Pulse Ox O2 Delivery O2 Flow Rate FiO2 12/04/24 19:13 74 195/92 12/04/24 19:07 72 12/04/24 19:06 70 20 N/Cannula Low lpm 2.0 28 12/04/24 17:15 98.1 68 15 150/81 94 Nasal Cannula 3.0 28 12/04/24 17:05 98.1 66 15 154/78 93 Nasal Cannula 3.0 28 12/04/24 16:50 98.1 69 15 160/83 93 Nasal Cannula 3.0 28 12/04/24 16:45 98.1 71 15 155/85 93 Nasal Cannula 3.0 28 12/04/24 16:40 98.1 69 15 152/83 93 Nasal Cannula 3.0 28 12/04/24 16:35 98.1 72 15 140/80 93 Nasal Cannula 3.0 28 12/04/24 16:30 98.1 78 15 152/86 96 Nasal Cannula 3.0 28 12/04/24 16:25 98.1 85 18 147/86 96 Nasal Cannula 3.0 28 12/04/24 16:20 98.1 84 18 157/81 98 Nonrebreathing Mask 10.0 100 12/04/24 16:15 98.1 98 21 155/78 98 Nonrebreathing Mask 10.0 100 12/04/24 16:10 98.1 89 20 160/82 97 Nonrebreathing Mask 10.0 100 12/04/24 16:05 98.1 95 15 162/78 93 Nonrebreathing Mask 10.0 100 12/04/24 16:00 98.1 98 15 155/77 93 Nonrebreathing Mask 10.0 100 LABS: Chemistry Labs: Test 12/04/24 07:55 Range/Units Potassium Level 4.8 3.5-5.1 mmol/L DIAGNOSTICS / RADIOLOGY RESULTS: PLAN NEURO: Minimize central acting medications as possible. Maintain fall precautions, adequate lighting during the day PULMONARY: Supplemental 02 as needed. Maintain aspiration precautions at all times CARDIOVASCULAR: Follow hemodynamics. Vital signs per facility protocol GI & NUTRITION: Continue with nutritional support. Continue stool softeners and laxatives as needed. KIDNEYS & ELECTROLYTES: Strict monitoring of intake, output and overall fluid balance. Avoid nephrotoxic medications to the extent possible. Medications to be dosed according to renal function. Monitor electrolytes and replace as needed ENDOCRINE: Maintain blood glucose between 100-180 at all times. Hypoglycemia protocol in place INFECTIOUS DISEASE: Trend temperature, WBC and procalcitonin level Follow cultures, deescalate antibiotics as soon as possible. Panculture if new onset fever ONCOLOGY/HEMATOLOGY/COAGULATION: Monitor for s/s of bleeding Monitor hemoglobin, coagulation studies as needed SKIN: Pressure ulcer prevention per facility protocol Specialty mattress ORTHO/REHAB: Continue PT/OT Prophylaxis: Continue GI and DVT prophylaxis Code Status: Full Resuscitation Disposition: TBD Supervising physician: NORBERTO Camarillo AGACNP Dec 04, 2024 19:53
[2024-12-04] MEDS: FAMOTIDINE 20MG VIAL IV SCH (20:05)
[2024-12-04] MEDS: GABAPENTIN 300 MG CAPSULE PO SCH (20:05)
[2024-12-05] VITALS (12 sets, daily range): BP systolic 136–156; BP diastolic 77–89; PULSE 63–84; RESP 17–20; TEMP 97.6–98.6; O2SAT 92–98
[2024-12-05] MEDS: HYDROcodone/APAP 5/325 1 TAB TABLET PO PRN (03:14)
[2024-12-05 05:20] LABS: IMMATURE GRANULOCYTE ABSOLUTE 0.05 K/uL (0-1); NUCLEATED RED BLOOD CELLS 0.0 % (0.0-0.19); PLATELET COUNT (AUTO) 198 K/uL (130-400); RED BLOOD CELL COUNT(AUTO) 5.05 MIL/uL (4.50-6.20); RED CELL DISTRIBUTION WIDTH 16.6 % (11.0-15.5); WHITE BLOOD COUNT (AUTO) 10.4 K/uL (4.8-10.8)
[2024-12-05 05:31] LABS: CREATININE 0.7 mg/dL (0.5-1.3); GLOMERULAR FILTR. RATE CALC 99.0 mL/min (>90); GLUCOSE,RANDOM 145.0 mg/dL (70-105); SODIUM SERUM 138.0 mmol/L (136-145); UREA NITROGEN, BLOOD 9.0 mg/dL (7-18)
[2024-12-05] MEDS: (Plecanatide (Trulance) 3 MG) PO SCH (09:00)
[2024-12-05] MEDS: ENOXAPARIN SODIUM 40 MG/0.4 ML SYRINGE SQ SCH (09:17)
--- NOTE | 2024-12-05 10:11 | NUR ---
DCP:HOME Pt currently lives at home alone. Pt does have a cane, walker, wheelchair, and shower chair at home. Pt also has o2 through [employer]. pt does have a provider that goes to his home 3 hrs a day to assist with home management and meals. PCP is Dr. Puneet Smallwood and uses [facility] for any RX needs. At [place] pt will want to go home and family can assist with transportation. Addendum: 12/05/24 at 1013 by HELGA VARGHESE SS Amended: Links added.
--- NOTE | 2024-12-05 11:22 | PN ---
[facility] PROGRESS NOTE Date of Visit: Dec 05, 2024 Time of Visit: 11:20 Events / Notes: [68-year-old male patient with past medical history for hypertension, hyperlipidemia, GERD, and complicated diverticulitis who underwent a robotic low anterior resection, with partial omental resection, IV ICG administration for anastomotic graft assessment, flexible sigmoidoscopy, and extensive lysis of adhesions. Patient is hemodynamically stable. He has tolerated his fluids without any nausea or vomiting. Patient's WBC of 10.4, hemoglobin 14.9, platelets 198. Chemistry unremarkable. Patient is a,a, &o in no acute distress resting in supine position. His respirations are unlabored BBS clear. Abdomen is soft and not distended. Incisions are dry &intact and open to air. Ac drain with serosanguinous output. Encouraged ambulation and I/s exercises. ] Review of Systems: CONSTITUTIONAL: No malaise or change in sensation of wellbeing. ENMT: No rhinorrhea, otorrhea, sinus pain, ear ache. CARDIOVASCULAR: No angina, palpitations, orthopnea or paroxysmal dyspnea. RESPIRATORY: No SOB. GASTROINTESTINAL: No abdominal pain, nausea, vomiting, diarrhea, hematemesis, melena or change in the patient's habitual bowel movements consistency/number. GENITOURINARY: No dysuria, hematuria or change in bladder continence. MUSCULOSKELETAL: No new muscle pain or decrease in muscular strength. No new joint swelling, redness or tenderness. SKIN: No new rash. Physical Exam: GEN: Awake, alert, oriented in person, time and place, and in no acute distress. HEENT: No rhinorrhea. Oral mucosa is pink, moist and within normal limits. CHEST: I Lung auscultation revealed normal breath sounds bilaterally. CARDIAC: Heart sounds are regular. ABD: Soft, non-tender and not distended. No peritoneal signs on palpation. Normal bowel sounds. Incisions are dry and intact open to air with dermabond. Ac drain with serosanguinous output. Randall cath draining clear yellow urine. EXT: No cyanosis or clubbing. No edema. SKIN: Intact. No rashes. JOINTS: No evidence of synovitis or acute arthritis. NEURO: Alert and oriented to name, place and person. No focal motor deficits. Normal speech.. Strength is normal. Vital Signs (last 8hr) Date Time Temp Pulse Resp B/P (MAP) Pulse Ox O2 Delivery O2 Flow Rate FiO2 10/16/25 09:18 140/80 12/05/24 08:00 98.6 70 18 140/88 92 Room Air 1.0 12/05/24 07:21 71 20 N/Cannula Low lpm 2.0 28 12/05/24 04:00 98.2 65 18 156/80 95 Nasal Cannula 1.0 Laboratory: [ ] Laboratory: Test 12/05/24 05:23 12/05/24 04:44 12/04/24 20:30 12/04/24 09:53 Range/Units Whole Blood Glucose 152 H 70-110 MG/DL White Blood Count 10.4 4.8-10.8 K/uL Red Blood Count 5.05 4.50-6.20 MIL/uL Hemoglobin 14.9 14.0-18.0 g/dL Hematocrit 45.4 42-54 % Mean Corpuscular Volume 89.9 79-99 fL Mean Corpuscular Hemoglobin 29.5 27.0-33.0 pg Mean Corpuscular Hemoglobin Concent 32.8 32.0-36.0 g/dL Red Cell Distribution Width 16.6 H 11.0-15.5 % Platelet Count 198 130-400 K/uL Mean Platelet Volume 12.6 H 7.5-10.5 fL Immature Granulocyte % (Auto) 0.5 0-1 % Neutrophils (%) (Auto) 79.1 H 40.0-77.0 % Lymphocytes (%) (Auto) 10.1 L 21.0-51.0 % Monocytes (%) (Auto) 10.2 3.0-13.0 % Eosinophils (%) (Auto) 0.0 0.0-8.0 % Basophils (%) (Auto) 0.1 0.0-5.0 % Neutrophils # (Auto) 8.3 H 1.8-7.7 K/uL Lymphocytes # (Auto) 1.1 1.0-4.8 K/uL Monocytes # (Auto) 1.1 H 0.1-1.0 K/uL Eosinophils # (Auto) 0.00 0.00-0.70 K/uL Basophils # (Auto) 0.01 0.00-0.20 K/uL Absolute Immature Granulocyte (auto 0.05 0-1 K/uL Nucleated Red Blood Cells 0.0 0.0-0.19 % Sodium Level 138 136-145 mmol/L Potassium Level 4.3 3.5-5.1 mmol/L Chloride Level 102 101-111 mmol/L Carbon Dioxide Level 31 21-32 mmol/L Blood Urea Nitrogen 9 7-18 mg/dL Creatinine 0.7 0.5-1.3 mg/dL Glomerular Filtration Rate Calc 99 >90 mL/min Random Glucose 145 H 70-105 mg/dL Total Calcium 8.8 8.5-10.1 mg/dL Bedside Glucose Comment Notified Nurse Urine Opiates Screen NEGATIVE NEGATIVE Urine Barbiturates Screen NEGATIVE NEGATIVE Urine Phencyclidine Screen NEGATIVE NEGATIVE Urine Amphetamines Screen NEGATIVE NEGATIVE Urine Benzodiazepines Screen POSITIVE H NEGATIVE Urine Cocaine Screen NEGATIVE NEGATIVE Urine Marijuana (THC) Screen POSITIVE H NEGATIVE Current Medications Medications (Trade) Dose Ordered Sig/Iglesia Route PRN Reason Start Time Stop Time Status Last Admin Dose Admin Acetaminophen (TYLenol 325MG TAB) 650 mg Q4H PRN PO TEMPERATURE GREATER THAN 101 12/04/24 12:00 01/03/25 11:59 Acetaminophen/ Hydrocodone Bitart (NORco 5/325MG) 1 tab Q4H PRN PO MODERATE PAIN (4-6) 12/04/24 12:00 12/09/24 11:59 12/05/24 03:14 1 TAB Albuterol (DUOneb) 1 udvial Q6H PRN IH SHORTNESS OF BREATH 12/04/24 18:00 01/03/25 17:59 12/04/24 18:58 1 UDVIAL Albuterol Sulfate (Proventil 0.083% 2.5mg/3ml) 2.5 mg TID IH 12/04/24 14:00 01/03/25 13:59 12/05/24 07:15 2.5 MG Alprazolam (XANax 0.5MG) 0.5 mg Q12H PRN PO ANXIETY/AGITATION 12/04/24 17:30 01/03/25 17:29 12/05/24 09:17 0.5 MG Atorvastatin Calcium (LIPItor 40MG) 40 mg DAILY PO 12/05/24 09:00 01/04/25 08:59 12/05/24 09:18 40 MG Budesonide (Pulmicort 0.5 Mg/2ml) 0.5 mg BIDRESP IH 12/04/24 18:00 01/03/25 17:59 12/05/24 07:15 0.5 MG Buspirone HCl (BUspar) 30 mg TID PO 12/04/24 21:00 01/03/25 20:59 12/05/24 09:18 30 MG Carvedilol (Coreg 6.25MG) 6.25 mg BID PO 12/04/24 21:00 01/03/25 20:59 12/05/24 09:18 6.25 MG Dextrose/Sodium Chloride 1,000 ml @ 75 mls/hr [id number] IV 12/04/24 18:30 01/03/25 18:29 12/04/24 19:13 75 MLS/HR Enoxaparin Sodium (Lovenox) 40 mg DAILY SQ 12/05/24 09:00 01/04/25 08:59 12/05/24 09:17 40 MG Famotidine (Pepcid 20mg Vial) 20 mg BID IV 12/04/24 21:00 01/03/25 20:59 12/05/24 09:16 20 MG Gabapentin (NEURontin 300 MG CAP) 300 mg TID PO 12/04/24 21:00 01/03/25 20:59 12/04/24 20:05 300 MG Home Med (Home Medication) (Lumateperone Tosylate (Caplyta)... AM PO 12/05/24 09:00 01/04/25 08:59 12/05/24 09:00 1 EACH Home Med (Home Medication) (Plecanatide (Trulance) 3 MG) AM PO 12/05/24 09:00 01/04/25 08:59 Hydralazine HCl (APRESOLine 20MG INJ) 10 mg Q6H PRN IV ADMINISTER FOR SBP > 170 12/04/24 18:00 01/03/25 17:59 12/04/24 19:13 10 MG Insulin Human Regular (humuLIN R 100 UNIT/ML 3ML) AD PRN SQ SLIDING SCALE COVERAGE 12/04/24 12:00 01/03/25 11:59 Ipratropium [place] (AtrovENT UD) 0.5 mg TID IH 12/04/24 14:00 01/03/25 13:59 12/05/24 07:15 0.5 MG Losartan Potassium (CozAAR 50 mg TAB) 50 mg AM PO 12/05/24 09:00 01/04/25 08:59 12/05/24 09:18 50 MG Morphine Sulfate (morPHINE 4MG SYG) 2 mg Q3H PRN IV MODERATE PAIN (4-6) IF NPO 12/04/24 12:00 12/11/24 11:59 12/05/24 01:03 2 MG Morphine Sulfate (morPHINE 4MG SYG) 4 mg Q3H PRN IV SEVERE PAIN (7-10) IF NPO 12/04/24 12:00 12/11/24 11:59 12/05/24 09:15 4 MG Nitroglycerin (Nitrostat) 0.4 mg AD SL 12/04/24 17:30 01/03/25 17:29 Ondansetron HCl (zoFRAN 4MG INJ) 4 mg Q4H PRN IVP NAUSEA 12/04/24 12:00 01/03/25 11:59 12/05/24 05:52 4 MG Potassium Chloride/Dextrose/ Sod Cl 1,000 ml @ 75 mls/hr [id number] IV 12/04/24 12:00 12/04/24 18:16 DC Trazodone HCl (DesyREL/OlepTRO) 100 mg HS PO 12/04/24 21:00 01/03/25 20:59 12/04/24 20:05 100 MG Diagnostics / Radiology: [COPY/PASTE HERE IF NO REPORTS PLEASE DELETE SECTION] Assessment: [ Complicated diverticulitis Hypertension GERD Hyperlipidemia ] Plan: Plan: [Advance diet as tolerated Randall to be removed Encourage ambulation Encourage I/S exercises Pain meds as needed Antiemetics prn Plan for disposition in the next 24 - 48 hours from colorectal standpoint Please call with questions, concerns, and change in clinical status Appreciate hospitalist's assistance in this patient's care ] ] CHERI ROBERTO Dec 05, 2024 11:22
--- NOTE | 2024-12-05 12:37 | PN ---
[facility] PROGRESS NOTE Date Patient Seen: Dec 05, 2024 Time of Visit: 12:37 Supervising Physician: Dr. Dennis Edwards Consulting Physician: [Hospitalist Outpatient Specialists: [ ] Inpatient Consults: [ ] PROBLEM LIST: Acute on chronic respiratory failure, POA COPD, POA O2 dependency, usually uses 2-1/2 L of oxygen per nasal cannula at home Tobacco use, smoked one pack per three days Omental mass, status post robotic partial omental resection, adhesiolysis, and anastomosis 12/04 History of pulmonary embolism, on chronic anticoagulation with Eliquis PLAN: Admit per primary Continue O2 therapy Keep O2 saturation above 90% Incentive spirometry Aspiration precautions Keep head of bed above 30 DuoNeb q.6 Budesonide neb b.i.d. Deep breathing exercises Rest of plan care of primary/surgery INTERVAL HISTORY: 12/05-assessed and seen patient while resting in bed with head of the bed eleva phillip. Awake, alert, and oriented. Accompanied by patient's bedside nurse. Reviewed and discussed with patient laboratory results, vital signs, patient's health history, and medication use and treatment. Patient reports using home oxygen. Patient's vital signs are stable. Patient is afebrile. A.m. labs ordered. REVIEW OF SYSTEMS: 12 point ROS reviewed with patient. Pertinent positives mentioned above. Otherwise negative. PHYSICAL EXAM: GENERAL: alert, weak, awake oriented x 3 HEENT: EOMI, Sclera non icteric, moist mucosa NECK: Supple, no JVD, trachea midline LUNGS: Coarse lung sounds left lung aguirre HEART: Regular rate and rhythm. Normal S1 and S2, without murmurs ABD: With abdominal incision, with tenderness supported by abdominal binder. EXT: No clubbing cyanosis or edema NEURO: Alert and oriented to person, follows commands Vital Signs (last 8hr) Date Time Temp Pulse Resp B/P (MAP) Pulse Ox O2 Delivery O2 Flow Rate FiO2 12/05/24 12:00 97.9 72 18 136/82 94 Room Air 12/05/24 09:18 140/80 12/05/24 08:00 98.6 70 18 140/88 92 Room Air 1.0 12/05/24 07:21 71 20 N/Cannula Low lpm 2.0 28 LABS: Hematology Labs: Test 12/05/24 04:44 Range/Units White Blood Count 10.4 4.8-10.8 K/uL Red Blood Count 5.05 4.50-6.20 MIL/uL Hemoglobin 14.9 14.0-18.0 g/dL Hematocrit 45.4 42-54 % Mean Corpuscular Volume 89.9 79-99 fL Mean Corpuscular Hemoglobin 29.5 27.0-33.0 pg Mean Corpuscular Hemoglobin Concent 32.8 32.0-36.0 g/dL Red Cell Distribution Width 16.6 H 11.0-15.5 % Platelet Count 198 130-400 K/uL Mean Platelet Volume 12.6 H 7.5-10.5 fL Immature Granulocyte % (Auto) 0.5 0-1 % Neutrophils (%) (Auto) 79.1 H 40.0-77.0 % Lymphocytes (%) (Auto) 10.1 L 21.0-51.0 % Monocytes (%) (Auto) 10.2 3.0-13.0 % Eosinophils (%) (Auto) 0.0 0.0-8.0 % Basophils (%) (Auto) 0.1 0.0-5.0 % Neutrophils # (Auto) 8.3 H 1.8-7.7 K/uL Lymphocytes # (Auto) 1.1 1.0-4.8 K/uL Monocytes # (Auto) 1.1 H 0.1-1.0 K/uL Eosinophils # (Auto) 0.00 0.00-0.70 K/uL Basophils # (Auto) 0.01 0.00-0.20 K/uL Absolute Immature Granulocyte (auto 0.05 0-1 K/uL Nucleated Red Blood Cells 0.0 0.0-0.19 % Chemistry Labs: Test 12/05/24 11:32 12/05/24 04:44 12/04/24 20:30 Range/Units Whole Blood Glucose 124 H 70-110 MG/DL Sodium Level 138 136-145 mmol/L Potassium Level 4.3 3.5-5.1 mmol/L Chloride Level 102 101-111 mmol/L Carbon Dioxide Level 31 21-32 mmol/L Blood Urea Nitrogen 9 7-18 mg/dL Creatinine 0.7 0.5-1.3 mg/dL Glomerular Filtration Rate Calc 99 >90 mL/min Random Glucose 145 H 70-105 mg/dL Total Calcium 8.8 8.5-10.1 mg/dL Bedside Glucose Comment Notified Nurse DIAGNOSTICS / RADIOLOGY RESULTS: [ ] PLAN NEURO: Minimize central acting medications as possible. Maintain fall precautions, adequate lighting during the day PULMONARY: Supplemental 02 as needed. Maintain aspiration precautions at all times CARDIOVASCULAR: Follow hemodynamics. Vital signs per facility protocol GI & NUTRITION: Continue with nutritional support. Continue stool softeners and laxatives as needed. KIDNEYS & ELECTROLYTES: Strict monitoring of intake, output and overall fluid balance. Avoid nephrotoxic medications to the extent possible. Medications to be dosed according to renal function. Monitor electrolytes and replace as needed ENDOCRINE: Maintain blood glucose between 100-180 at all times. Hypoglycemia protocol in place INFECTIOUS DISEASE: Trend temperature, WBC and procalcitonin level Follow cultures, deescalate antibiotics as soon as possible. Panculture if new onset fever ONCOLOGY/HEMATOLOGY/COAGULATION: Monitor for s/s of bleeding Monitor hemoglobin, coagulation studies as needed SKIN: Pressure ulcer prevention per facility protocol Specialty mattress ORTHO/REHAB: Continue PT/OT Prophylaxis: Continue GI and DVT prophylaxis Code Status: Full Resuscitation [facility] Dec 05, 2024 12:37
--- NOTE | 2024-12-05 12:44 | PN ---
[facility] PROGRESS NOTE Date of Service: Dec 05, 2024 Time of Service: 12:[address] Cano SUBJECTIVE: [ 12/04 68-year-old male with underlying history of COPD, chronic tobacco use disorder, prior history of pulmonary embolism x2 maintained on chronic anticoagulation with Eliquis, chronic hypoxemic respiratory failure on supplemental O2 therapy, history of gastritis, prior history of perforated diverticulitis in 09/2024 with complicated diverticulitis. 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 Patient was seen postoperatively, patient has expected postoperative abdominal pain. Patient denies any active chest pain or shortness of breath. Abdominal pain is moderate in intensity and patient reports feeling some mild nausea. Patient does have underlying history of hypertension, he has previous history of pulmonary embolism and is maintained on chronic anticoagulation with Eliquis. He is followed by pulmonology in [place]. Reports having had two prior episodes of PE. Last dose of Eliquis was two days ago. Patient reports having his tree of respiratory failure and has been maintained on home oxygen therapy. He has chronic history of significant smoking and smokes about two packs a day.Continue to monitor this patient closely, we will see how patient progresses in the next 24-48 hours. We will have pulmonology follow this patient along due to underlying pulmonary comorbidities. Anticoagulation with Eliquis will be held today as patient just had major intra-abdominal surgery today. We will have Surgical Service follow up on this patient and we will await when patient can be started back on anticoagulation in the next 24-48 hours. 12/05 patient was seen by nurse practitioner physician during rounding in room 309. 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 Patient was evaluated by the GI at this moment they recommend advance diet as tolerated, ambulate, incentive spirometer exercise, anticipated discharge within 24 to 48 hours. Patient stated that he already has a provider at home 3 hours each day seven days a week. All labs and radiology was reviewed by LEAD MANUFACTURING TECHNICIAN. PT was consulted to workup with the patient. We will continue to monitor patient in th e meantime. A.m. labs] REVIEW OF SYSTEMS CONSTITUTIONAL: Denies fevers, chills, or night sweats. No unintentional weight loss reported. NEUROLOGICAL: Denies headache, amaurosis fugax, motor weakness, sensory deficit, vertigo/spinning sensation, gait abnormalities, or tremors. ENT: No hearing loss, otalgia, otorrhea, rhinitis, rhinorrhea, hoarseness, or sore throat. CARDIOVASCULAR: Denies any exertional angina, dyspnea on exertion, orthopnea, paroxysmal nocturnal dyspnea, palpitations, life-threatening arrhythmias, claudication. PULMONARY: Denies any shortness of breath, cough, phlegm/sputum, hemoptysis, pleuritic chest pain. SLEEP: Denies morning headaches, daytime somnolence or napping. Denies difficulty falling asleep, staying asleep, waking from sleep. Denies knowledge of snoring. GASTROINTESTINAL: Postoperative abdominal pain and nausea as expected GENITOURINARY: Denies frequency, urgency, nocturia, hematuria or incontinence (Storage/Irritative symptoms.) Low urinary stream, straining to void, urinary intermittency or hesitancy, splitting of the voiding stream, terminal dribbling. ENDOCRINOLOGIC: Denies polyuria, polydipsia, polyphagia or heat/cold intolerances. HEMATOLOGIC: Denies thrombophilia/previous clots, or coagulopathy/bleeding disorders. ONCOLOGIC: Denies personal history of malignancy. DERMATOLOGIC: Denies rashes or pruritus. PSYCHIATRIC: Denies any suicidal or homicidal ideation. Denies hallucinations. PHYSICAL EXAM GENERAL APPEARANCE: The patient is awake, alert, currently on 3 L of O2 supplementation by nasal canula NEUROLOGICAL: Cranial nerves II-XII grossly intact. patient is moving both upper and lower extremities with no focal deficits, through exam was not performed as patient is post operative and is having post operative pain HEENT: Face is symmetric. Pupils are equal and reactive. Extraocular movements are intact. NECK: Supple. No JVD. No thyromegaly. No submental, submandibular, pre- /postauricular, occipital or supraclavicular lymphadenopathy. CHEST: Normal chest expansion. No Telemetry. LUNGS: Absence of any rales, rhonchi or any wheezing. CARDIOVASCULAR: Regular. S1 and S2 normal. No appreciable rubs, murmurs or gallops. ABDOMEN: Soft, nontender, and nondistended. There is no rebound, voluntary guarding, or rigidity. : Deferred. No Randall. EXTREMITIES: Non-edematous and not cyanotic. No clubbing. Good capillary refill. SKIN: No skin breakdown. Vital Signs (last 8hr) Date Time Temp Pulse Resp B/P (MAP) Pulse Ox O2 Delivery O2 Flow Rate FiO2 12/05/24 12:00 97.9 72 18 136/82 94 Room Air 12/05/24 09:18 140/80 12/05/24 08:00 98.6 70 18 140/88 92 Room Air 1.0 12/05/24 07:21 71 20 N/Cannula Low lpm 2.0 28 LABS: Laboratory: Test 12/05/24 11:32 12/05/24 04:44 12/04/24 20:30 12/04/24 09:53 Range/Units Whole Blood Glucose 124 H 70-110 MG/DL White Blood Count 10.4 4.8-10.8 K/uL Red Blood Count 5.05 4.50-6.20 MIL/uL Hemoglobin 14.9 14.0-18.0 g/dL Hematocrit 45.4 42-54 % Mean Corpuscular Volume 89.9 79-99 fL Mean Corpuscular Hemoglobin 29.5 27.0-33.0 pg Mean Corpuscular Hemoglobin Concent 32.8 32.0-36.0 g/dL Red Cell Distribution Width 16.6 H 11.0-15.5 % Platelet Count 198 130-400 K/uL Mean Platelet Volume 12.6 H 7.5-10.5 fL Immature Granulocyte % (Auto) 0.5 0-1 % Neutrophils (%) (Auto) 79.1 H 40.0-77.0 % Lymphocytes (%) (Auto) 10.1 L 21.0-51.0 % Monocytes (%) (Auto) 10.2 3.0-13.0 % Eosinophils (%) (Auto) 0.0 0.0-8.0 % Basophils (%) (Auto) 0.1 0.0-5.0 % Neutrophils # (Auto) 8.3 H 1.8-7.7 K/uL Lymphocytes # (Auto) 1.1 1.0-4.8 K/uL Monocytes # (Auto) 1.1 H 0.1-1.0 K/uL Eosinophils # (Auto) 0.00 0.00-0.70 K/uL Basophils # (Auto) 0.01 0.00-0.20 K/uL Absolute Immature Granulocyte (auto 0.05 0-1 K/uL Nucleated Red Blood Cells 0.0 0.0-0.19 % Sodium Level 138 136-145 mmol/L Potassium Level 4.3 3.5-5.1 mmol/L Chloride Level 102 101-111 mmol/L Carbon Dioxide Level 31 21-32 mmol/L Blood Urea Nitrogen 9 7-18 mg/dL Creatinine 0.7 0.5-1.3 mg/dL Glomerular Filtration Rate Calc 99 >90 mL/min Random Glucose 145 H 70-105 mg/dL Total Calcium 8.8 8.5-10.1 mg/dL Bedside Glucose Comment Notified Nurse Urine Opiates Screen NEGATIVE NEGATIVE Urine Barbiturates Screen NEGATIVE NEGATIVE Urine Phencyclidine Screen NEGATIVE NEGATIVE Urine Amphetamines Screen NEGATIVE NEGATIVE Urine Benzodiazepines Screen POSITIVE H NEGATIVE Urine Cocaine Screen NEGATIVE NEGATIVE Urine Marijuana (THC) Screen POSITIVE H NEGATIVE Current Medications Medications (Trade) Dose Ordered Sig/Iglesia Route PRN Reason Start Time Stop Time Status Last Admin Dose Admin Acetaminophen (TYLenol 325MG TAB) 650 mg Q4H PRN PO TEMPERATURE GREATER THAN 101 12/04/24 12:00 01/03/25 11:59 Acetaminophen/ Hydrocodone Bitart (NORco 5/325MG) 1 tab Q4H PRN PO MODERATE PAIN (4-6) 12/04/24 12:00 12/09/24 11:59 12/05/24 03:14 1 TAB Albuterol (DUOneb) 1 udvial Q6H PRN IH SHORTNESS OF BREATH 12/04/24 18:00 01/03/25 17:59 12/04/24 18:58 1 UDVIAL Albuterol Sulfate (Proventil 0.083% 2.5mg/3ml) 2.5 mg TID IH 12/04/24 14:00 01/03/25 13:59 12/05/24 07:15 2.5 MG Alprazolam (XANax 0.5MG) 0.5 mg Q12H PRN PO ANXIETY/AGITATION 12/04/24 17:30 01/03/25 17:29 12/05/24 09:17 0.5 MG Atorvastatin Calcium (LIPItor 40MG) 40 mg DAILY PO 12/05/24 09:00 01/04/25 08:59 10/16/25 09:18 40 MG Budesonide (Pulmicort 0.5 Mg/2ml) 0.5 mg BIDRESP IH 12/04/24 18:00 01/03/25 17:59 12/05/24 07:15 0.5 MG Buspirone HCl (BUspar) 30 mg TID PO 12/04/24 21:00 01/03/25 20:59 12/05/24 09:18 30 MG Carvedilol (Coreg 6.25MG) 6.25 mg BID PO 12/04/24 21:00 01/03/25 20:59 12/05/24 09:18 6.25 MG Dextrose/Sodium Chloride 1,000 ml @ 75 mls/hr [id number] IV 12/04/24 18:30 01/03/25 18:29 12/04/24 19:13 75 MLS/HR Enoxaparin Sodium (Lovenox) 40 mg DAILY SQ 12/05/24 09:00 01/04/25 08:59 12/05/24 09:17 40 MG Famotidine (Pepcid 20mg Vial) 20 mg BID IV 12/04/24 21:00 01/03/25 20:59 12/05/24 09:16 20 MG Gabapentin (NEURontin 300 MG CAP) 300 mg TID PO 12/04/24 21:00 01/03/25 20:59 12/04/24 20:05 300 MG Home Med (Home Medication) (Lumateperone Tosylate (Caplyta)... AM PO 12/05/24 09:00 01/04/25 08:59 12/05/24 09:00 1 EACH Home Med (Home Medication) (Plecanatide (Trulance) 3 MG) AM PO 12/05/24 09:00 01/04/25 08:59 Hydralazine HCl (APRESOLine 20MG INJ) 10 mg Q6H PRN IV ADMINISTER FOR SBP > 170 12/04/24 18:00 01/03/25 17:59 12/04/24 19:13 10 MG Insulin Human Regular (humuLIN R 100 UNIT/ML 3ML) AD PRN SQ SLIDING SCALE COVERAGE 12/04/24 12:00 01/03/25 11:59 Ipratropium [place] (AtrovENT UD) 0.5 mg TID IH 12/04/24 14:00 01/03/25 13:59 12/05/24 07:15 0.5 MG Losartan Potassium (CozAAR 50 mg TAB) 50 mg AM PO 12/05/24 09:00 01/04/25 08:59 12/05/24 09:18 50 MG Morphine Sulfate (morPHINE 4MG SYG) 2 mg Q3H PRN IV MODERATE PAIN (4-6) IF NPO 12/04/24 12:00 12/11/24 11:59 12/05/24 01:03 2 MG Morphine Sulfate (morPHINE 4MG SYG) 4 mg Q3H PRN IV SEVERE PAIN (7-10) IF NPO 12/04/24 12:00 12/11/24 11:59 12/05/24 09:15 4 MG Nitroglycerin (Nitrostat) 0.4 mg AD SL 12/04/24 17:30 01/03/25 17:29 Ondansetron HCl (zoFRAN 4MG INJ) 4 mg Q4H PRN IVP NAUSEA 12/04/24 12:00 01/03/25 11:59 12/05/24 05:52 4 MG Potassium Chloride/Dextrose/ Sod Cl 1,000 ml @ 75 mls/hr [id number] IV 12/04/24 12:00 12/04/24 18:16 DC Trazodone HCl (DesyREL/OlepTRO) 100 mg HS PO 12/04/24 21:00 01/03/25 20:59 12/04/24 20:05 100 MG DIAGNOSTICS / RADIOLOGY: [ ] ASSESSMENT: Complicated diverticulitis status post robotic low anterior resection with anastomosis, 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 De Oliveira, 12/04/2024 History of chronic hypoxemic respiratory failure on home supplemental O2 therapy, POA History of bipolar disorder, POA History of generalized anxiety disorder, POA History of chronic tobacco use disorder, POA COPD, POA History of pulmonary embolism x2 on chronic anticoagulation with Eliquis, POA Hypertension, POA Hyperlipidemia, POA GERD, POA History of gastritis, POA PLAN: Patient is s/p robotic low anterior resection, robotic partial omental resection secondary to omental mass, adhesiolysis and anastomosis on 12/04/2024. Patient was evaluated by the GI at this moment they recommend advance diet as tolerated, ambulate, incentive spirometer exercise, anticipated discharge within 24 to 48 hours. Patient stated that he already has a provider at home 3 hours each day seven days a week. All labs and radiology was reviewed by LEAD MANUFACTURING TECHNICIAN. PT was consulted to workup with the patient. We will continue to monitor patient in the meantime. A.m. labs Patient will continue with admission and close monitoring in medical-surgical floor under telemetry monitoring We will start patient on scheduled Pulmicort and DuoNebs p.r.n. q.6 hours Continue to hold Eliquis today as patient is postoperative We will defer to Surgical Service about resuming Eliquis in the next 24-48 hours, patient does have underlying history of pulmonary embolism previously Due to underlying pulmonary comorbidities, we will have pulmonology follow this patient Continue with antihypertensive therapy with carvedilol 6.25 mg b.i.d., losartan 50 mg daily, we will start patient on IV hydralazine q.6 hours p.r.n. for SBP greater than 170 Continue with p.r.n. antiemetics Plan of care was discussed with the patient at bedside, ATTESTATION BY PHYSICIAN I have seen and examined the patient. I reviewed the documentation, medical decision making, and treatment plan as noted by the mid-level provider above. I agree with the findings and plan of care. Raul Cano IV, MD, [facility] Dec 05, 2024 12:44
--- NOTE | 2024-12-05 19:19 | NUR ---
Upon pt request for pain medication which was administered he requested his psychoactive medications which I explained to him were scheduled for 2100. He stated that if he was not given his psychoactive medications he was going to go all out of whack and stated "I am bipolar, I hope you know that" I then educated pt that medications could only be administered 1 hour before and 1 hour after. Pt stated I better be careful that once he goes "all out of whack he will start throwing things across the room and shouting like crazy". Reinforced that pt will receive psychoactive medications at set time and pt huffed and verbalized understanding.
[2024-12-06] VITALS (12 sets, daily range): BP systolic 127–158; BP diastolic 69–97; PULSE 58–68; RESP 18–20; TEMP 97.5–98.2; O2SAT 95–99
[2024-12-06 05:20] LABS: IMMATURE GRANULOCYTE ABSOLUTE 0.02 K/uL (0-1); NUCLEATED RED BLOOD CELLS 0.0 % (0.0-0.19); PLATELET COUNT (AUTO) 171 K/uL (130-400); RED BLOOD CELL COUNT(AUTO) 4.77 MIL/uL (4.50-6.20); RED CELL DISTRIBUTION WIDTH 17.0 % (11.0-15.5); WHITE BLOOD COUNT (AUTO) 9.5 K/uL (4.8-10.8)
[2024-12-06 05:48] LABS: ASPARTATE AMINOTRANSFERASE 26.0 U/L (10-37); CREATININE 0.8 mg/dL (0.5-1.3); GLOMERULAR FILTR. RATE CALC 95.0 mL/min (>90); GLUCOSE,RANDOM 117.0 mg/dL (70-105); SODIUM SERUM 144.0 mmol/L (136-145); TOTAL PROTEIN, SERUM 6.6 g/dL (6.0-8.3); UREA NITROGEN, BLOOD 7.0 mg/dL (7-18)
[2024-12-06] MEDS: PoTASSium chloRIDE 20MEQ ER 20 MEQ ERTAB PO ONE (08:35)
--- NOTE | 2024-12-06 10:58 | PN ---
[facility] PROGRESS NOTE Date of Service: Dec 06, 2024 Time of Service: 10:[address] Cano SUBJECTIVE: [ 12/04 68-year-old male with underlying history of COPD, chronic tobacco use disorder, prior history of pulmonary embolism x2 maintained on chronic anticoagulation with Eliquis, chronic hypoxemic respiratory failure on supplemental O2 therapy, history of gastritis, prior history of perforated diverticulitis in 09/2024 with complicated diverticulitis. 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 Patient was seen postoperatively, patient has expected postoperative abdominal pain. Patient denies any active chest pain or shortness of breath. Abdominal pain is moderate in intensity and patient reports feeling some mild nausea. Patient does have underlying history of hypertension, he has previous history of pulmonary embolism and is maintained on chronic anticoagulation with Eliquis. He is followed by pulmonology in [place]. Reports having had two prior episodes of PE. Last dose of Eliquis was two days ago. Patient reports having his tree of respiratory failure and has been maintained on home oxygen therapy. He has chronic history of significant smoking and smokes about two packs a day.Continue to monitor this patient closely, we will see how patient progresses in the next 24-48 hours. We will have pulmonology follow this patient along due to underlying pulmonary comorbidities. Anticoagulation with Eliquis will be held today as patient just had major intra-abdominal surgery today. We will have Surgical Service follow up on this patient and we will await when patient can be started back on anticoagulation in the next 24-48 hours. 12/05 patient was seen by nurse practitioner physician during rounding in room 309. 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 Patient was evaluated by the GI at this moment they recommend advance diet as tolerated, ambulate, incentive spirometer exercise, anticipated discharge within 24 to 48 hours. Patient stated that he already has a provider at home 3 hours each day seven days a week. All labs and radiology was reviewed by [employer]. PT was consulted to workup with the patient. We will continue to monitor patient in the meantime. A.m. labs 12/06 patient was seen by nurse practitioner and physician. Patient continues to be on 2 L nasal cannula which is baseline for patient at home as. Patient stated that he has a lot of pain is unable to walk. We will consult PT for evaluation. Case management was also consulted for possible rehab. Patient will receive 2 g of magnesium and 40 mEq of potassium. Patient was evaluated by the hospital carrier for history of COPD and PE on Eliquis and at this moment they recommend just to monitor patient. Patient to be discharged once cleared by GI. We will continue to monitor patient in the meantime. A.m. labs] REVIEW OF SYSTEMS CONSTITUTIONAL: Denies fevers, chills, or night sweats. No unintentional weight loss reported. NEUROLOGICAL: Denies headache, amaurosis fugax, motor weakness, sensory d eficit, vertigo/spinning sensation, gait abnormalities, or tremors. ENT: No hearing loss, otalgia, otorrhea, rhinitis, rhinorrhea, hoarseness, or sore throat. CARDIOVASCULAR: Denies any exertional angina, dyspnea on exertion, orthopnea, paroxysmal nocturnal dyspnea, palpitations, life-threatening arrhythmias, claudication. PULMONARY: Denies any shortness of breath, cough, phlegm/sputum, hemoptysis, pleuritic chest pain. SLEEP: Denies morning headaches, daytime somnolence or napping. Denies difficulty falling asleep, staying asleep, waking from sleep. Denies knowledge of snoring. GASTROINTESTINAL: Postoperative abdominal pain and nausea as expected GENITOURINARY: Denies frequency, urgency, nocturia, hematuria or incontinence (Storage/Irritative symptoms.) Low urinary stream, straining to void, urinary intermittency or hesitancy, splitting of the voiding stream, terminal dribbling. ENDOCRINOLOGIC: Denies polyuria, polydipsia, polyphagia or heat/cold intolerances. HEMATOLOGIC: Denies thrombophilia/previous clots, or coagulopathy/bleeding disorders. ONCOLOGIC: Denies personal history of malignancy. DERMATOLOGIC: Denies rashes or pruritus. PSYCHIATRIC: Denies any suicidal or homicidal ideation. Denies hallucinations. PHYSICAL EXAM GENERAL APPEARANCE: The patient is awake, alert, currently on 3 L of O2 supplementation by nasal canula NEUROLOGICAL: Cranial nerves II-XII grossly intact. patient is moving both upper and lower extremities with no focal deficits, through exam was not performed as patient is post operative and is having post operative pain HEENT: Face is symmetric. Pupils are equal and reactive. Extraocular movements are intact. NECK: Supple. No JVD. No thyromegaly. No submental, submandibular, pre- /postauricular, occipital or supraclavicular lymphadenopathy. CHEST: Normal chest expansion. No Telemetry. LUNGS: Absence of any rales, rhonchi or any wheezing. CARDIOVASCULAR: Regular. S1 and S2 normal. No appreciable rubs, murmurs or gallops. ABDOMEN: Soft, nontender, and nondistended. There is no rebound, voluntary guarding, or rigidity. : Deferred. No Randall. EXTREMITIES: Non-edematous and not cyanotic. No clubbing. Good capillary refill. SKIN: No skin breakdown. Vital Signs (last 8hr) Date Time Temp Pulse Resp B/P (MAP) Pulse Ox O2 Delivery O2 Flow Rate FiO2 12/06/24 08:32 158/97 12/06/24 08:00 97.7 58 18 158/97 96 Room Air 12/06/24 07:08 63 19 12/06/24 07:07 65 20 N/Cannula Low lpm 2.0 28 12/06/24 04:43 98.2 67 20 131/79 97 Nasal Cannula 3.0 LABS: Laboratory: Test 12/06/24 05:43 12/06/24 04:52 12/04/24 20:30 Range/Units Whole Blood Glucose 132 H 70-110 MG/DL White Blood Count 9.5 4.8-10.8 K/uL Red Blood Count 4.77 4.50-6.20 MIL/uL Hemoglobin 14.2 14.0-18.0 g/dL Hematocrit 43.6 42-54 % Mean Corpuscular Volume 91.4 79-99 fL Mean Corpuscular Hemoglobin 29.8 27.0-33.0 pg Mean Corpuscular Hemoglobin Concent 32.6 32.0-36.0 g/dL Red Cell Distribution Width 17.0 H 11.0-15.5 % Platelet Count 171 130-400 K/uL Mean Platelet Volume 12.6 H 7.5-10.5 fL Immature Granulocyte % (Auto) 0.2 0-1 % Neutrophils (%) (Auto) 68.8 40.0-77.0 % Lymphocytes (%) (Auto) 16.5 L 21.0-51.0 % Monocytes (%) (Auto) 12.7 3.0-13.0 % Eosinophils (%) (Auto) 1.7 0.0-8.0 % Basophils (%) (Auto) 0.1 0.0-5.0 % Neutrophils # (Auto) 6.5 1.8-7.7 K/uL Lymphocytes # (Auto) 1.6 1.0-4.8 K/uL Monocytes # (Auto) 1.2 H 0.1-1.0 K/uL Eosinophils # (Auto) 0.16 0.00-0.70 K/uL Basophils # (Auto) 0.01 0.00-0.20 K/uL Absolute Immature Granulocyte (auto 0.02 0-1 K/uL Nucleated Red Blood Cells 0.0 0.0-0.19 % Sodium Level 144 136-145 mmol/L Potassium Level 3.6 3.5-5.1 mmol/L Chloride Level 104 101-111 mmol/L Carbon Dioxide Level 32 21-32 mmol/L Blood Urea Nitrogen 7 7-18 mg/dL Creatinine 0.8 0.5-1.3 mg/dL Glomerular Filtration Rate Calc 95 >90 mL/min Random Glucose 117 H 70-105 mg/dL Total Calcium 8.8 8.5-10.1 mg/dL Magnesium Level 1.80 1.80-2.40 mg/dL Total Bilirubin 0.8 0.2-1.0 mg/dL Aspartate Amino Transf (AST/SGOT) 26 10-37 U/L Alanine Aminotransferase (ALT/SGPT) 30 12-78 U/L Alkaline Phosphatase 36 L 50-136 U/L Total Protein 6.6 6.0-8.3 g/dL Albumin 2.9 L 3.5-5.0 g/dL Bedside Glucose Comment Notified Nurse Current Medications Medications (Trade) Dose Ordered Sig/Iglesia Route PRN Reason Start Time Stop Time Status Last Admin Dose Admin Acetaminophen (TYLenol 325MG TAB) 650 mg Q4H PRN PO TEMPERATURE GREATER THAN 101 12/04/24 12:00 01/03/25 11:59 Acetaminophen (acetaMINOPHEN 1,000MG/100ML) 1,000 mg Q6H6 PRN IVPB SEVERE PAIN (7-10) 12/05/24 17:30 01/04/25 17:29 Acetaminophen/ Hydrocodone Bitart (NORco 5/325MG) 1 tab Q4H PRN PO MODERATE PAIN (4-6) 12/04/24 12:00 12/09/24 11:59 12/06/24 08:40 1 TAB Albuterol (DUOneb) 1 udvial Q6H PRN IH SHORTNESS OF BREATH 12/04/24 18:00 01/03/25 17:59 12/04/24 18:58 1 UDVIAL Albuterol Sulfate (Proventil 0.083% 2.5mg/3ml) 2.5 mg TID IH 12/04/24 14:00 01/03/25 13:59 12/06/24 07:09 2.5 MG Alprazolam (XANax 0.5MG) 0.5 mg Q12H PRN PO ANXIETY/AGITATION 12/04/24 17:30 01/03/25 17:29 12/05/24 23:10 0.5 MG Atorvastatin Calcium (LIPItor 40MG) 40 mg DAILY PO 12/05/24 09:00 01/04/25 08:59 12/06/24 08:31 40 MG Budesonide (Pulmicort 0.5 Mg/2ml) 0.5 mg BIDRESP IH 12/04/24 18:00 01/03/25 17:59 12/06/24 07:05 0.5 MG Buspirone HCl (BUspar) 30 mg TID PO 12/04/24 21:00 01/03/25 20:59 12/06/24 08:32 30 MG Carvedilol (Coreg 6.25MG) 6.25 mg BID PO 12/04/24 21:00 01/03/25 20:59 12/06/24 08:32 6.25 MG Dextrose/Sodium Chloride 1,000 ml @ 75 mls/hr [id number] IV 12/04/24 18:30 01/03/25 18:29 12/05/24 22:04 75 MLS/HR Enoxaparin Sodium (Lovenox) 40 mg DAILY SQ 12/05/24 09:00 01/04/25 08:59 12/06/24 08:32 40 MG Famotidine (Pepcid 20mg Vial) 20 mg BID IV 12/04/24 21:00 01/03/25 20:59 12/06/24 08:31 20 MG Gabapentin (NEURontin 300 MG CAP) 300 mg TID PO 12/04/24 21:00 01/03/25 20:59 12/06/24 08:31 300 MG Home Med (Home Medication) (Lumateperone Tosylate (Caplyta)... AM PO 12/05/24 09:00 01/04/25 08:59 12/05/24 09:00 1 EACH Home Med (Home Medication) (Plecanatide (Trulance) 3 MG) AM PO 12/05/24 09:00 01/04/25 08:59 Hydralazine HCl (APRESOLine 20MG INJ) 10 mg Q6H PRN IV ADMINISTER FOR SBP > 170 12/04/24 18:00 01/03/25 17:59 12/04/24 19:13 10 MG Insulin Human Regular (humuLIN R 100 UNIT/ML 3ML) AD PRN SQ SLIDING SCALE COVERAGE 12/04/24 12:00 01/03/25 11:59 Ipratropium [place] (AtrovENT UD) 0.5 mg TID IH 12/04/24 14:00 01/03/25 13:59 12/06/24 07:06 0.5 MG Losartan Potassium (CozAAR 50 mg TAB) 50 mg AM PO 12/05/24 09:00 01/04/25 08:59 12/06/24 08:31 50 MG Magnesium Sulfate 50 ml @ 0 mls/hr PROTOCOL IV 12/06/24 07:00 01/05/25 06:59 Morphine Sulfate (morPHINE 4MG SYG) 2 mg Q3H PRN IV MODERATE PAIN (4-6) IF NPO 12/04/24 12:00 12/05/24 17:16 DC 12/05/24 01:03 2 MG Morphine Sulfate (morPHINE 4MG SYG) 4 mg Q3H PRN IV SEVERE PAIN (7-10) IF NPO 12/04/24 12:00 12/05/24 17:16 DC 12/05/24 13:24 4 MG Nitroglycerin (Nitrostat) 0.4 mg AD SL 12/04/24 17:30 01/03/25 17:29 Ondansetron HCl (zoFRAN 4MG INJ) 4 mg Q4H PRN IVP NAUSEA 12/04/24 12:00 01/03/25 11:59 12/05/24 19:03 4 MG Potassium Chloride/Dextrose/ Sod Cl 1,000 ml @ 75 mls/hr [id number] IV 12/04/24 12:00 12/04/24 18:16 DC Trazodone HCl (DesyREL/OlepTRO) 100 mg HS PO 12/04/24 21:00 01/03/25 20:59 12/05/24 20:14 100 MG DIAGNOSTICS / RADIOLOGY: [ ] ASSESSMENT: Complicated diverticulitis status post robotic low anterior resection with anastomosis, 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 De Oliveira, 12/04/2024 History of chronic hypoxemic respiratory failure on home supplemental O2 therapy, POA History of bipolar disorder, POA History of generalized anxiety disorder, POA History of chronic tobacco use disorder, POA COPD, POA History of pulmonary embolism x2 on chronic anticoagulation with Eliquis, POA Hypertension, POA Hyperlipidemia, POA GERD, POA History of gastritis, POA PLAN: Patient continues to be on 2 L nasal cannula which is baseline for patient at home as. Patient stated that he has a lot of pain is unable to walk. We will consult PT for evaluation. Case management was also consulted for possible rehab. Patient will receive 2 g of magnesium and 40 mEq of potassium. Patient was evaluated by the hospital carrier for history of COPD and PE on Eliquis and at this moment they recommend just to monitor patient. Patient to be discharged on ce cleared by GI. We will continue to monitor patient in the meantime. A.m. 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 Patient was evaluated by the GI at this moment they recommend advance diet as tolerated, ambulate, incentive spirometer exercise, anticipated discharge within 24 to 48 hours. Patient will continue with admission and close monitoring in medical-surgical floor under telemetry monitoring We will start patient on scheduled Pulmicort and DuoNebs p.r.n. q.6 hours Due to underlying pulmonary comorbidities, we will have pulmonology follow this patient Continue with antihypertensive therapy with carvedilol 6.25 mg b.i.d., losartan 50 mg daily, we will start patient on IV hydralazine q.6 hours p.r.n. for SBP greater than 170 Continue with p.r.n. antiemetics Plan of care was discussed with the patient at bedside, ATTESTATION BY PHYSICIAN I have seen and examined the patient. I reviewed the documentation, medical decision making, and treatment plan as noted by the mid-level provider above. I agree with the findings and plan of care. Raul Cano IV, MD, [facility] Dec 06, 2024 10:58
--- NOTE | 2024-12-06 13:23 | PN ---
[facility] PROGRESS NOTE Date Patient Seen: Dec 06, 2024 Time of Visit: 13:22 Supervising Physician: Dr. Luis Castelan Consulting Physician: [Hospitalist Outpatient Specialists: [ ] Inpatient Consults: [ ] PROBLEM LIST: Acute on chronic respiratory failure, POA COPD, POA O2 dependency, usually uses 2-1/2 L of oxygen per nasal cannula at home Tobacco use, smoked one pack per three days Omental mass, status post robotic partial omental resection, adhesiolysis, and anastomosis 12/04 History of pulmonary embolism, on chronic anticoagulation with Eliquis PLAN: Admit per primary Continue O2 therapy Keep O2 saturation above 90% Incentive spirometry Aspiration precautions Keep head of bed above 30 DuoNeb q.6 Budesonide neb b.i.d. Further orders per course of stay Rest of plan care of primary/surgery INTERVAL HISTORY: 12/05-assessed and seen patient while resting in bed with head of the bed elevated. Awake, alert, and oriented. Accompanied by patient's bedside nurse. Reviewed and discussed with patient laboratory results, vital signs, patient's health history, and medication use and treatment. Patient reports using home oxygen. Patient's vital signs are stable. Patient is afebrile. A.m. labs ordered. 12/06-examined seen the patient by myself accompanied by patient's bedside nurse. Patient awake, alert, oriented and in no acute distress. Patient denies shortness or breath fever, chills, nausea and constipation currently. Patient reports difficulty with ambulation. Vital thigh. Patient afebrile. Reviewed and discussed with the patient laboratory results vital signs, diagnostic tests results and treatment plan. No questions nor concerns afterwards. REVIEW OF SYSTEMS: 12 point ROS reviewed with patient. Pertinent positives mentioned above. Otherwise negative. PHYSICAL EXAM: GENERAL: alert, weak, awake oriented x 3 HEENT: EOMI, Sclera non icteric, moist mucosa NECK: Supple, no JVD, trachea midline LUNGS: Coarse lung sounds left lung aguirre HEART: Regular rate and rhythm. Normal S1 and S2, without murmurs ABD: With abdominal incision, with tenderness supported by abdominal binder. EXT: No clubbing cyanosis or edema NEURO: Alert and oriented to person, follows commands Vital Signs (last 8hr) Date Time Temp Pulse Resp B/P (MAP) Pulse Ox O2 Delivery O2 Flow Rate FiO2 12/06/24 11:32 97.5 63 18 138/82 96 Room Air 12/06/24 08:32 158/97 12/06/24 08:00 97.7 58 18 158/97 96 Room Air 12/06/24 07:08 63 19 12/06/24 07:07 65 20 N/Cannula Low lpm 2.0 28 LABS: Hematology Labs: Test 12/06/24 04:52 Range/Units White Blood Count 9.5 4.8-10.8 K/uL Red Blood Count 4.77 4.50-6.20 MIL/uL Hemoglobin 14.2 14.0-18.0 g/dL Hematocrit 43.6 42-54 % Mean Corpuscular Volume 91.4 79-99 fL Mean Corpuscular Hemoglobin 29.8 27.0-33.0 pg Mean Corpuscular Hemoglobin Concent 32.6 32.0-36.0 g/dL Red Cell Distribution Width 17.0 H 11.0-15.5 % Platelet Count 171 130-400 K/uL Mean Platelet Volume 12.6 H 7.5-10.5 fL Immature Granulocyte % (Auto) 0.2 0-1 % Neutrophils (%) (Auto) 68.8 40.0-77.0 % Lymphocytes (%) (Auto) 16.5 L 21.0-51.0 % Monocytes (%) (Auto) 12.7 3.0-13.0 % Eosinophils (%) (Auto) 1.7 0.0-8.0 % Basophils (%) (Auto) 0.1 0.0-5.0 % Neutrophils # (Auto) 6.5 1.8-7.7 K/uL Lymphocytes # (Auto) 1.6 1.0-4.8 K/uL Monocytes # (Auto) 1.2 H 0.1-1.0 K/uL Eosinophils # (Auto) 0.16 0.00-0.70 K/uL Basophils # (Auto) 0.01 0.00-0.20 K/uL Absolute Immature Granulocyte (auto 0.02 0-1 K/uL Nucleated Red Blood Cells 0.0 0.0-0.19 % Chemistry Labs: Test 12/06/24 11:05 12/06/24 04:52 12/04/24 20:30 Range/Units Whole Blood Glucose 129 H 70-110 MG/DL Sodium Level 144 136-145 mmol/L Potassium Level 3.6 3.5-5.1 mmol/L Chloride Level 104 101-111 mmol/L Carbon Dioxide Level 32 21-32 mmol/L Blood Urea Nitrogen 7 7-18 mg/dL Creatinine 0.8 0.5-1.3 mg/dL Glomerular Filtration Rate Calc 95 >90 mL/min Random Glucose 117 H 70-105 mg/dL Total Calcium 8.8 8.5-10.1 mg/dL Magnesium Level 1.80 1.80-2.40 mg/dL Total Bilirubin 0.8 0.2-1.0 mg/dL Aspartate Amino Transf (AST/SGOT) 26 10-37 U/L Alanine Aminotransferase (ALT/SGPT) 30 12-78 U/L Alkaline Phosphatase 36 L 50-136 U/L Total Protein 6.6 6.0-8.3 g/dL Albumin 2.9 L 3.5-5.0 g/dL Bedside Glucose Comment Notified Nurse DIAGNOSTICS / RADIOLOGY RESULTS: [ ] PLAN NEURO: Minimize central acting medications as possible. Maintain fall precautions, adequate lighting during the day PULMONARY: Supplemental 02 as needed. Maintain aspiration precautions at all times CARDIOVASCULAR: Follow hemodynamics. Vital signs per facility protocol GI & NUTRITION: Continue with nutritional support. Continue stool softeners and laxatives as needed. KIDNEYS & ELECTROLYTES: Strict monitoring of intake, output and overall fluid balance. Avoid nephrotoxic medications to the extent possible. Medications to be dosed according to renal function. Monitor electrolytes and replace as needed ENDOCRINE: Maintain blood glucose between 100-180 at all times. Hypoglycemia protocol in place INFECTIOUS DISEASE: Trend temperature, WBC and procalcitonin level Follow cultures, deescalate antibiotics as soon as possible. Panculture if new onset fever ONCOLOGY/HEMATOLOGY/COAGULATION: Monitor for s/s of bleeding Monitor hemoglobin, coagulation studies as needed SKIN: Pressure ulcer prevention per facility protocol Specialty mattress ORTHO/REHAB: Continue PT/OT Prophylaxis: Continue GI and DVT prophylaxis Code Status: Full Resuscitation [facility] Dec 06, [facility] 13:23
--- NOTE | 2024-12-06 14:13 | PN ---
COLORECTAL PROGRESS NOTE Date of Visit: Dec 06, 2024 Time of Visit: 14:11 Pt doing well. Tolerating diet. Passing stool and gas. No n.v. Having proble ms walking. Review of Systems: CONSTITUTIONAL: No malaise or change in sensation of wellbeing. ENMT: No rhinorrhea, otorrhea, sinus pain, ear ache. CARDIOVASCULAR: No angina, palpitations, orthopnea or paroxysmal dyspnea. RESPIRATORY: No SOB. GASTROINTESTINAL: No abdominal pain, nausea, vomiting, diarrhea, hematemesis, melena or change in the patient's habitual bowel movements consistency/number. GENITOURINARY: No dysuria, hematuria or change in bladder continence. MUSCULOSKELETAL: No new muscle pain or decrease in muscular strength. No new joint swelling, redness or tenderness. SKIN: No new rash. Physical Exam: abd soft, nontender, nondistended wounds clean ever serosang Vital Signs (last 8hr) Date Time Temp Pulse Resp B/P (MAP) Pulse Ox O2 Delivery O2 Flow Rate FiO2 12/06/24 11:32 97.5 63 18 138/82 96 Room Air 12/06/24 08:32 158/97 12/06/24 08:00 97.7 58 18 158/97 96 Room Air 12/06/24 08:00 96 Nasal Cannula* 2 28 12/06/24 07:08 63 19 12/06/24 07:07 65 20 N/Cannula Low lpm 2.0 28 Laboratory: [ ] Laboratory: Test 12/06/24 11:05 12/06/24 04:52 12/04/24 20:30 Range/Units Whole Blood Glucose 129 H 70-110 MG/DL White Blood Count 9.5 4.8-10.8 K/uL Red Blood Count 4.77 4.50-6.20 MIL/uL Hemoglobin 14.2 14.0-18.0 g/dL Hematocrit 43.6 42-54 % Mean Corpuscular Volume 91.4 79-99 fL Mean Corpuscular Hemoglobin 29.8 27.0-33.0 pg Mean Corpuscular Hemoglobin Concent 32.6 32.0-36.0 g/dL Red Cell Distribution Width 17.0 H 11.0-15.5 % Platelet Count 171 130-400 K/uL Mean Platelet Volume 12.6 H 7.5-10.5 fL Immature Granulocyte % (Auto) 0.2 0-1 % Neutrophils (%) (Auto) 68.8 40.0-77.0 % Lymphocytes (%) (Auto) 16.5 L 21.0-51.0 % Monocytes (%) (Auto) 12.7 3.0-13.0 % Eosinophils (%) (Auto) 1.7 0.0-8.0 % Basophils (%) (Auto) 0.1 0.0-5.0 % Neutrophils # (Auto) 6.5 1.8-7.7 K/uL Lymphocytes # (Auto) 1.6 1.0-4.8 K/uL Monocytes # (Auto) 1.2 H 0.1-1.0 K/uL Eosinophils # (Auto) 0.16 0.00-0.70 K/uL Basophils # (Auto) 0.01 0.00-0.20 K/uL Absolute Immature Granulocyte (auto 0.02 0-1 K/uL Nucleated Red Blood Cells 0.0 0.0-0.19 % Sodium Level 144 136-145 mmol/L Potassium Level 3.6 3.5-5.1 mmol/L Chloride Level 104 101-111 mmol/L Carbon Dioxide Level 32 21-32 mmol/L Blood Urea Nitrogen 7 7-18 mg/dL Creatinine 0.8 0.5-1.3 mg/dL Glomerular Filtration Rate Calc 95 >90 mL/min Random Glucose 117 H 70-105 mg/dL Total Calcium 8.8 8.5-10.1 mg/dL Magnesium Level 1.80 1.80-2.40 mg/dL Total Bilirubin 0.8 0.2-1.0 mg/dL Aspartate Amino Transf (AST/SGOT) 26 10-37 U/L Alanine Aminotransferase (ALT/SGPT) 30 12-78 U/L Alkaline Phosphatase 36 L 50-136 U/L Total Protein 6.6 6.0-8.3 g/dL Albumin 2.9 L 3.5-5.0 g/dL Bedside Glucose Comment Notified Nurse Current Medications Medications (Trade) Dose Ordered Sig/Iglesia Route PRN Reason Start Time Stop Time Status Last Admin Dose Admin Acetaminophen (TYLenol 325MG TAB) 650 mg Q4H PRN PO TEMPERATURE GREATER THAN 101 12/04/24 12:00 01/03/25 11:59 Acetaminophen (acetaMINOPHEN 1,000MG/100ML) 1,000 mg Q6H6 PRN IVPB SEVERE PAIN (7-10) 12/05/24 17:30 01/04/25 17:29 Acetaminophen/ Hydrocodone Bitart (NORco 5/325MG) 1 tab Q4H PRN PO MODERATE PAIN (4-6) 12/04/24 12:00 12/09/24 11:59 12/06/24 08:40 1 TAB Albuterol (DUOneb) 1 udvial Q6H PRN IH SHORTNESS OF BREATH 12/04/24 18:00 01/03/25 17:59 12/04/24 18:58 1 UDVIAL Albuterol Sulfate (Proventil 0.083% 2.5mg/3ml) 2.5 mg TID IH 12/04/24 14:00 01/03/25 13:59 12/06/24 07:09 2.5 MG Alprazolam (XANax 0.5MG) 0.5 mg Q12H PRN PO ANXIETY/AGITATION 12/04/24 17:30 01/03/25 17:29 12/05/24 23:10 0.5 MG Atorvastatin Calcium (LIPItor 40MG) 40 mg DAILY PO 12/05/24 09:00 01/04/25 08:59 12/06/24 08:31 40 MG Budesonide (Pulmicort 0.5 Mg/2ml) 0.5 mg BIDRESP IH 12/04/24 18:00 01/03/25 17:59 12/06/24 07:05 0.5 MG Buspirone HCl (BUspar) 30 mg TID PO 12/04/24 21:00 01/03/25 20:59 12/06/24 08:32 30 MG Carvedilol (Coreg 6.25MG) 6.25 mg BID PO 12/04/24 21:00 01/03/25 20:59 12/06/24 08:32 6.25 MG Dextrose/Sodium Chloride 1,000 ml @ 75 mls/hr [id number] IV 12/04/24 18:30 01/03/25 18:29 12/05/24 22:04 75 MLS/HR Enoxaparin Sodium (Lovenox) 40 mg DAILY SQ 12/05/24 09:00 01/04/25 08:59 12/06/24 08:32 40 MG Famotidine (Pepcid 20mg Vial) 20 mg BID IV 12/04/24 21:00 01/03/25 20:59 12/06/24 08:31 20 MG Gabapentin (NEURontin 300 MG CAP) 300 mg TID PO 12/04/24 21:00 01/03/25 20:59 12/06/24 08:31 300 MG Home Med (Home Medication) (Lumateperone Tosylate (Caplyta)... AM PO 12/05/24 09:00 01/04/25 08:59 12/05/24 09:00 1 EACH Home Med (Home Medication) (Plecanatide (Trulance) 3 MG) AM PO 12/05/24 09:00 01/04/25 08:59 Hydralazine HCl (APRESOLine 20MG INJ) 10 mg Q6H PRN IV ADMINISTER FOR SBP > 170 12/04/24 18:00 01/03/25 17:59 12/04/24 19:13 10 MG Insulin Human Regular (humuLIN R 100 UNIT/ML 3ML) AD PRN SQ SLIDING SCALE COVERAGE 12/04/24 12:00 01/03/25 11:59 Ipratropium Rangely (AtrovENT UD) 0.5 mg TID IH 12/04/24 14:00 01/03/25 13:59 12/06/24 07:06 0.5 MG Losartan Potassium (CozAAR 50 mg TAB) 50 mg AM PO 12/05/24 09:00 01/04/25 08:59 12/06/24 08:31 50 MG Magnesium Sulfate 50 ml @ 0 mls/hr PROTOCOL IV 12/06/24 07:00 01/05/25 06:59 Morphine Sulfate (morPHINE 4MG SYG) 2 mg Q3H PRN IV MODERATE PAIN (4-6) IF NPO 12/04/24 12:00 12/05/24 17:16 DC 12/05/24 01:03 2 MG Morphine Sulfate (morPHINE 4MG SYG) 4 mg Q3H PRN IV SEVERE PAIN (7-10) IF NPO 12/04/24 12:00 12/05/24 17:16 DC 12/05/24 13:24 4 MG Nitroglycerin (Nitrostat) 0.4 mg AD SL 12/04/24 17:30 01/03/25 17:29 Ondansetron HCl (zoFRAN 4MG INJ) 4 mg Q4H PRN IVP NAUSEA 12/04/24 12:00 01/03/25 11:59 12/05/24 19:03 4 MG Potassium Chloride/Dextrose/ Sod Cl 1,000 ml @ 75 mls/hr [id number] IV 12/04/24 12:00 12/04/24 18:16 DC Trazodone HCl (DesyREL/OlepTRO) 100 mg HS PO 12/04/24 21:00 01/03/25 20:59 12/05/24 20:14 100 MG Diagnostics / Radiology: [COPY/PASTE HERE IF NO REPORTS PLEASE DELETE SECTION] Pt doing well. Cleared for discharge from CRS standpoint. Pt having mobility issues due to his back so primary is looking into placement. We will see patient as needed. EVER drain to come out today. Pt cleared to go to rehab, SNF, LTAC or home from a CRS standpoint. Pt aware and agrees. Abdominal precautions given. ] ] MARINA ABREU MD Dec 06, 2024 14:13
--- NOTE | 2024-12-06 14:22 | NUR ---
NURSING NOTE RAFITA DRAIN REMOVED. PATIENT TOLERATED WELL. PRESSURE AND DRESSING WERE APPLIED. ANSWERED ANY QUESTIONS AND CONCERNS PATIENT HAD. CALL LIGHT WITHIN REACH.
--- NOTE | 2024-12-06 17:00 | NUR ---
SNFREFERRAL SENT TO [facility] AND REP HERE TO INTERVIEW PATIENT
[2024-12-06] MEDS: MAGNESIUM 2GM PREMIX 50ML 50 ML IV SCH (17:23)
[2024-12-07] VITALS (11 sets, daily range): BP systolic 97–140; BP diastolic 57–80; PULSE 56–82; RESP 18–20; TEMP 97.6–97.9; O2SAT 92–94
[2024-12-07 05:15] LABS: IMMATURE GRANULOCYTE ABSOLUTE 0.02 K/uL (0-1); NUCLEATED RED BLOOD CELLS 0.0 % (0.0-0.19); PLATELET COUNT (AUTO) 157 K/uL (130-400); RED BLOOD CELL COUNT(AUTO) 4.95 MIL/uL (4.50-6.20); RED CELL DISTRIBUTION WIDTH 17.3 % (11.0-15.5); WHITE BLOOD COUNT (AUTO) 7.7 K/uL (4.8-10.8)
[2024-12-07 05:32] LABS: ASPARTATE AMINOTRANSFERASE 24.0 U/L (10-37); CREATININE 0.8 mg/dL (0.5-1.3); GLOMERULAR FILTR. RATE CALC 95.0 mL/min (>90); GLUCOSE,RANDOM 118.0 mg/dL (70-105); SODIUM SERUM 148.0 mmol/L (136-145); TOTAL PROTEIN, SERUM 6.9 g/dL (6.0-8.3); UREA NITROGEN, BLOOD 5.0 mg/dL (7-18)
--- NOTE | 2024-12-07 15:02 | DS ---
Discharge Summary Hospital Course Summary: DATE OF ADMISSION:[12/03/2024] DATE OF DISCHARGE:[12/07/2024] DISPOSITION:[SNF] CONDITION:[Medically stable] CONSULTANTS:[GI, trial court judge] FOLLOW UP APPOINTMENTS:[PCP 2 to 3 days. GI within one week. Director Speech Language within 1 to 2 weeks] PROCEDURES:[12/04/2024 low anterior resection robotic partial omental resection by Dr. De Oliveira] IMAGING: report attached to summary MICROBIOLOGY: report attached to summary ACTIVITY:[Requires assistance] HOME MEDICATIONS: see [facility] NEW MEDICATIONS:[All the medications were continued from the hospital to jail] EMERGENCY INSTRUCTIONS: The patient was instructed to present to the nearest Emergency departmentr or call 911 once their symptoms will return or worsen Sanitary Aide(s): Patient is 68 years old male with a past medical history of COPD, chronic tobacco use disorder, history of PE x2 on anticoagulation with the Eliquis, chronic hypoxemic respiratory failure on O2 therapy, gastritis, perforated diverticulitis in 09/2024 with complicated diverticulitis. 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 Above-stated surgery was performed on 12/04/[address] De Oliveira. After surgery patient came back to the floor with a RAFITA drain which was already removed on 12/06/2024. Patient was cleared by the GI to be discharged home and follow- up outpatient. As per patient due to lower back pain and inability to ambulate properly as prior to coming for elective surgery patient requested to be discharged to sniff versus rehab. PT and case management was ordered. Patient is cleared to be discharged to SNF once insurance approved. Nurse practitioner was also able to talk to Dr. Ramon from GI and he agree to place patient back on Eliquis [address] the orders. Eliquis to be continued at the jail. Was advised to follow up with PCP in [address] De Oliveira/MARY within one week and trial court judge within 1 to 2 weeks. Procedure(s): REVIEW OF SYSTEMS CONSTITUTIONAL: Denies fevers, chills, or night sweats. No unintentional weight loss reported. NEUROLOGICAL: Denies headache, amaurosis fugax, motor weakness, sensory deficit, vertigo/spinning sensation, gait abnormalities, or tremors. ENT: No hearing loss, otalgia, otorrhea, rhinitis, rhinorrhea, hoarseness, or sore throat. CARDIOVASCULAR: Denies any exertional angina, dyspnea on exertion, orthopnea, paroxysmal nocturnal dyspnea, palpitations, life-threatening arrhythmias, claudication. PULMONARY: Denies any shortness of breath, cough, phlegm/sputum, hemoptysis, pleuritic chest pain. SLEEP: Denies morning headaches, daytime somnolence or napping. Denies difficulty falling asleep, staying asleep, waking from sleep. Denies knowledge of snoring. GASTROINTESTINAL: Postoperative abdominal pain denies any nausea GENITOURINARY: Denies frequency, urgency, nocturia, hematuria or incontinence (Storage/Irritative symptoms.) Low urinary stream, straining to void, urinary intermittency or hesitancy, splitting of the voiding stream, terminal dribbling. ENDOCRINOLOGIC: Denies polyuria, polydipsia, polyphagia or heat/cold intolerances. HEMATOLOGIC: Denies thrombophilia/previous clots, or coagulopathy/bleeding disorders. ONCOLOGIC: Denies personal history of malignancy. DERMATOLOGIC: Denies rashes or pruritus. PSYCHIATRIC: Denies any suicidal or homicidal ideation. Denies hallucinations. 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 De Oliveira, 12/04/2024 History of chronic hypoxemic respiratory failure on home supplemental O2 therapy, POA History of bipolar disorder, POA History of generalized anxiety disorder, POA History of chronic tobacco use disorder, POA COPD, POA History of pulmonary embolism x2 on chronic anticoagulation with Eliquis, POA Hypertension, POA Hyperlipidemia, POA GERD, POA History of gastritis, POA Home Medications: Reported Medications Ondansetron (Ondansetron Odt) 4 Mg Tab.rapdis, 4 MG PO AD for NAUESA, TAB 12/02/24 Losartan Potassium (Losartan Potassium) 50 Mg Tablet, 50 MG PO AM, TAB 12/02/24 Lumateperone Tosylate (Caplyta) 42 Mg Capsule, 42 MG PO AD for BIPOLAR, CAP 12/02/24 Ciprofloxacin (Cipro) 500 Mg/[address] [facility].mc.rec, 500 MG PO [id number] 12/02/24 Linaclotide (Linzess) 290 Mcg Capsule, 290 MCG PO AD for CONSTIPATION , CAP 12/02/24 Nitroglycerin (Nitroglycerin) 0.4 Mg Tab.subl, 0.4 MG SL AD for CHEST PAIN, TAB.SL 12/02/24 [Iron] No Conflict Check, 45 MG PO AM 12/02/24 Plecanatide (Trulance) 3 Mg Tablet, 3 MG PO AM, TAB 12/02/24 Alprazolam (Alprazolam) 0.5 Mg Tablet, 1 TAB PO [id number] PRN for ANXIETY/AGITATION for 30 Days, #60 TAB 0 Refills 10/13/24 Trazodone HCl (Trazodone HCl) 100 Mg Tablet, 1 TAB PO HS for 30 Days, #30 TAB 0 Refills 10/13/24 Gabapentin (Neurontin) 300 Mg Capsule, 1 CAP PO TID for 30 Days, #90 CAP 0 Refills 10/13/24 Buspirone HCl (Buspirone HCl) 30 Mg Tablet, 30 MG PO TID, TAB 10/13/24 Apixaban (Eliquis) 5 Mg Tablet, 1 TAB PO BID for 30 Days, #60 TAB 0 Refills 10/13/24 Carvedilol (Carvedilol) 6.25 Mg Tablet, 6.25 MG PO BID, TAB 03/16/22 Atorvastatin Calcium (LIPITOR) 40 Mg Tablet, 40 MG PO DAILY, TAB 03/16/22 Discontinued Reported Medications Omeprazole (Omeprazole) 40 Mg Capsule.dr, 1 CAP PO DAILY for 30 Days, #30 CAP 0 Refills 10/13/24 Lumateperone Tosylate (Caplyta) 42 Mg Capsule, 1 CAP PO DAILY for 30 Days, #30 CAP 0 Refills WITH MEALS 10/13/24 Discontinued Scripts Metronidazole (Metronidazole) 500 Mg Tablet, 500 MG PO Q8H, #21 TAB Prov:MAK MACIAS PAC 10/22/24 Levofloxacin (Levaquin 750Mg Tabs) 750 Mg Tablet, 750 MG PO Q24H, #7 TAB Prov:MAK MACIAS PAC 10/22/24 Fluconazole (Fluconazole) 100 Mg Tablet, 400 MG PO DAILY, #7 TAB Prov:MAK MACIAS PAC 10/22/24 Time spent arranging discharge: 31-60 minutes ATTESTATION BY PHYSICIAN I have seen and examined the patient. I reviewed the documentation, medical decision making, and treatment plan as noted by the mid-level provider above. I agree with the findings and plan of care. Saulo Schneider MD, [facility] Dec 07, 2024 15:02
--- NOTE | 2024-12-07 16:00 | NUR ---
PENDING ACCEPTANCE AT OF . [place] [facility]. PATIENT STATES HE JUST MIGHT TO GO HOME AFTER ALL. THAT IS A VERY ACCEPTABLE ALTERNATE PLAN
[2024-12-08] VITALS (8 sets, daily range): BP systolic 102–139; BP diastolic 51–81; PULSE 63–85; RESP 18–20; TEMP 97.7–98.2; O2SAT 91–96
--- NOTE | 2024-12-08 08:10 | NUR ---
REFUSAL THE PATIENT REFUSED HIS MORNING MEDICATIONS BECAUSE THE PATIENT STATED "YOU DON'T NEED TO BE WITH ANYONE ELSE YOU SHOULD BE WITH ME. I HAVE MY OWN MEDIATIONS, I DON'T NEED YOU". THE PATIENT PROCEEDED TO TAKE HIS HOME MEDICATIONS. WHEN ASKED IF THE MEDICATIONS COULD BE REMOVED FROM THE ROOM. THE PATIENT RESPONDED "NO".
--- NOTE | 2024-12-08 12:07 | PN ---
[facility] PROGRESS NOTE Date of Service: Dec 08, 2024 Time of Service: 12:04 Attending doctor Schneider SUBJECTIVE: [ 12/04 68-year-old male with underlying history of COPD, chronic tobacco use disorder, prior history of pulmonary embolism x2 maintained on chronic anticoagulation with Eliquis, chronic hypoxemic respiratory failure on supplemental O2 therapy, history of gastritis, prior history of perforated diverticulitis in 09/2024 with complicated diverticulitis. 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 Patient was seen postoperatively, patient has expected postoperative abdominal pain. Patient denies any active chest pain or shortness of breath. Abdominal pain is moderate in intensity and patient reports feeling some mild nausea. Patient does have underlying history of hypertension, he has previous history of pulmonary embolism and is maintained on chronic anticoagulation with Eliquis. He is followed by pulmonology in [place]. Reports having had two prior episodes of PE. Last dose of Eliquis was two days ago. Patient reports having his tree of respiratory failure and has been maintained on home oxygen therapy. He has chronic history of significant smoking and smokes about two packs a day.Continue to monitor this patient closely, we will see how patient progresses in the next 24-48 hours. We will have pulmonology follow this patient along due to underlying pulmonary comorbidities. Anticoagulation with Eliquis will be held today as patient just had major intra-abdominal surgery today. We will have Surgical Service follow up on this patient and we will await when patient can be started back on anticoagulation in the next 24-48 hours. 12/05 patient was seen by nurse practitioner physician during rounding in room 309. 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 Patient was evaluated by the GI at this moment they recommend advance diet as tolerated, ambulate, incentive spirometer exercise, anticipated discharge within 24 to 48 hours. Patient stated that he already has a provider at home 3 hours each day seven days a week. All labs and radiology was reviewed by [facility]. PT was consulted to workup with the patient. We will continue to monitor patient in the meantime. A.m. labs 12/06 patient was seen by nurse practitioner and physician. Patient continues to be on 2 L nasal cannula which is baseline for patient at home as. Patient stated that he has a lot of pain is unable to walk. We will consult PT for evaluation. Case management was also consulted for possible rehab. Patient will receive 2 g of magnesium and 40 mEq of potassium. Patient was evaluated by the indirect sales representative for history of COPD and PE on Eliquis and at this moment they recommend just to monitor patient. Patient to be discharged once cleared by GI. We will continue to monitor patient in the meantime. A.m. labs 12/07 patient was seen by [facility] and physician during rounding. Patient was seen comfortably lying in the bed. Patient is alert oriented x3 on 2 L nasal cannula. Patient stated that he feels much better compared to the previous day after he takes the pain medications for his abdominal pain. At this moment patient is pending SNF disposition once insurance approved. We will continue to monitor patient in the meantime. A.m. labs.] REVIEW OF SYSTEMS CONSTITUTIONAL: Denies fevers, chills, or night sweats. No unintentional weight loss reported. NEUROLOGICAL: Denies headache, amaurosis fugax, motor weakness, sensory deficit, vertigo/spinning sensation, gait abnormalities, or tremors. ENT: No hearing loss, otalgia, otorrhea, rhinitis, rhinorrhea, hoarseness, or sore throat. CARDIOVASCULAR: Denies any exertional angina, dyspnea on exertion, orthopnea, paroxysmal nocturnal dyspnea, palpitations, life-threatening arrhythmias, claudication. PULMONARY: Denies any shortness of breath, cough, phlegm/sputum, hemoptysis, pleuritic chest pain. SLEEP: Denies morning headaches, daytime somnolence or napping. Denies difficulty falling asleep, staying asleep, waking from sleep. Denies knowledge of snoring. GASTROINTESTINAL: Postoperative abdominal pain GENITOURINARY: Denies frequency, urgency, nocturia, hematuria or incontinence (Storage/Irritative symptoms.) Low urinary stream, straining to void, urinary intermittency or hesitancy, splitting of the voiding stream, terminal dribbling. ENDOCRINOLOGIC: Denies polyuria, polydipsia, polyphagia or heat/cold intolerances. HEMATOLOGIC: Denies thrombophilia/previous clots, or coagulopathy/bleeding dis orders. ONCOLOGIC: Denies personal history of malignancy. DERMATOLOGIC: Denies rashes or pruritus. PSYCHIATRIC: Denies any suicidal or homicidal ideation. Denies hallucinations. PHYSICAL EXAM GENERAL APPEARANCE: The patient is awake, alert, currently on 3 L of O2 supplementation by nasal canula NEUROLOGICAL: Cranial nerves II-XII grossly intact. patient is moving both upper and lower extremities with no focal deficits, through exam was not performed as patient is post operative and is having post operative pain HEENT: Face is symmetric. Pupils are equal and reactive. Extraocular movements are intact. NECK: Supple. No JVD. No thyromegaly. No submental, submandibular, pre- /postauricular, occipital or supraclavicular lymphadenopathy. CHEST: Normal chest expansion. No Telemetry. LUNGS: Absence of any rales, rhonchi or any wheezing. CARDIOVASCULAR: Regular. S1 and S2 normal. No appreciable rubs, murmurs or gallops. ABDOMEN: Soft, nontender, and nondistended. There is no rebound, voluntary guarding, or rigidity. : Deferred. No Randall. EXTREMITIES: Non-edematous and not cyanotic. No clubbing. Good capillary refill. SKIN: No skin breakdown. Vital Signs (last 8hr) Date Time Temp Pulse Resp B/P (MAP) Pulse Ox O2 Delivery O2 Flow Rate FiO2 12/08/24 10:27 91 Room Air* 0 21 12/08/24 08:00 98.2 81 18 126/75 91 Room Air 12/08/24 06:12 67 20 N/Cannula Low lpm 2.0 28 LABS: Laboratory: Test 12/07/24 05:00 12/06/24 19:50 Range/Units White Blood Count 7.7 4.8-10.8 K/uL Red Blood Count 4.95 4.50-6.20 MIL/uL Hemoglobin 14.7 14.0-18.0 g/dL Hematocrit 45.8 42-54 % Mean Corpuscular Volume 92.5 79-99 fL Mean Corpuscular Hemoglobin 29.7 27.0-33.0 pg Mean Corpuscular Hemoglobin Concent 32.1 32.0-36.0 g/dL Red Cell Distribution Width 17.3 H 11.0-15.5 % Platelet Count 157 130-400 K/uL Mean Platelet Volume 11.6 H 7.5-10.5 fL Immature Granulocyte % (Auto) 0.3 0-1 % Neutrophils (%) (Auto) 64.2 40.0-77.0 % Lymphocytes (%) (Auto) 19.7 L 21.0-51.0 % Monocytes (%) (Auto) 10.2 3.0-13.0 % Eosinophils (%) (Auto) 4.9 0.0-8.0 % Basophils (%) (Auto) 0.7 0.0-5.0 % Neutrophils # (Auto) 4.9 1.8-7.7 K/uL Lymphocytes # (Auto) 1.5 1.0-4.8 K/uL Monocytes # (Auto) 0.8 0.1-1.0 K/uL Eosinophils # (Auto) 0.38 0.00-0.70 K/uL Basophils # (Auto) 0.05 0.00-0.20 K/uL Absolute Immature Granulocyte (auto 0.02 0-1 K/uL Nucleated Red Blood Cells 0.0 0.0-0.19 % Sodium Level 148 H 136-145 mmol/L Potassium Level 4.1 3.5-5.1 mmol/L Chloride Level 105 101-111 mmol/L Carbon Dioxide Level 34 H 21-32 mmol/L Blood Urea Nitrogen 5 L 7-18 mg/dL Creatinine 0.8 0.5-1.3 mg/dL Glomerular Filtration Rate Calc 95 >90 mL/min Random Glucose 118 H 70-105 mg/dL Total Calcium 8.9 8.5-10.1 mg/dL Magnesium Level 2.10 1.80-2.40 mg/dL Total Bilirubin 0.6 0.2-1.0 mg/dL Aspartate Amino Transf (AST/SGOT) 24 10-37 U/L Alanine Aminotransferase (ALT/SGPT) 30 12-78 U/L Alkaline Phosphatase 37 L 50-136 U/L Total Protein 6.9 6.0-8.3 g/dL Albumin 2.8 L 3.5-5.0 g/dL Whole Blood Glucose 135 H 70-110 MG/DL Current Medications Medications (Trade) Dose Ordered Sig/Iglesia Route PRN Reason Start Time Stop Time Status Last Admin Dose Admin Acetaminophen (TYLenol 325MG TAB) 650 mg Q4H PRN PO TEMPERATURE GREATER THAN 101 12/04/24 12:00 01/03/25 11:59 Acetaminophen (acetaMINOPHEN 1,000MG/100ML) 1,000 mg Q6H6 PRN IVPB SEVERE PAIN (7-10) 12/05/24 17:30 01/04/25 17:29 12/06/24 20:37 1,000 MG Acetaminophen/ Hydrocodone Bitart (NORco 5/325MG) 1 tab Q4H PRN PO MODERATE PAIN (4-6) 12/04/24 12:00 12/09/24 11:59 12/07/24 10:41 1 TAB Albuterol (DUOneb) 1 udvial Q6H PRN IH SHORTNESS OF BREATH 12/04/24 18:00 01/03/25 17:59 12/04/24 18:58 1 UDVIAL Albuterol Sulfate (Proventil 0.083% 2.5mg/3ml) 2.5 mg TID IH 12/04/24 14:00 01/03/25 13:59 12/07/24 23:17 2.5 MG Alprazolam (XANax 0.5MG) 0.5 mg Q12H PRN PO ANXIETY/AGITATION 12/04/24 17:30 01/03/25 17:29 12/07/24 09:17 0.5 MG Apixaban (EliquIS) 5 mg BID PO 12/07/24 21:00 01/06/25 20:59 12/07/24 19:48 5 MG Atorvastatin Calcium (LIPItor 40MG) 40 mg DAILY PO 12/05/24 09:00 01/04/25 08:59 12/07/24 09:16 40 MG Budesonide (Pulmicort 0.5 Mg/2ml) 0.5 mg BIDRESP IH 12/04/24 18:00 01/03/25 17:59 12/07/24 23:17 0.5 MG Buspirone HCl (BUspar) 30 mg TID PO 12/04/24 21:00 01/03/25 20:59 12/07/24 19:48 30 MG Carvedilol (Coreg 6.25MG) 6.25 mg BID PO 12/04/24 21:00 01/03/25 20:59 12/07/24 09:17 6.25 MG Dextrose/Sodium Chloride 1,000 ml @ 75 mls/hr [id number] IV 12/04/24 18:30 01/03/25 18:29 12/07/24 13:28 75 MLS/HR Enoxaparin Sodium (Lovenox) 40 mg DAILY SQ 12/05/24 09:00 12/07/24 12:18 DC 12/07/24 09:37 40 MG Famotidine (Pepcid 20mg Vial) 20 mg BID IV 12/04/24 21:00 01/03/25 20:59 12/07/24 19:49 20 MG Gabapentin (NEURontin 300 MG CAP) 300 mg TID PO 12/04/24 21:00 01/03/25 20:59 12/07/24 19:49 300 MG Home Med (Home Medication) (Lumateperone Tosylate (Caplyta)... AM PO 12/05/24 09:00 01/04/25 08:59 12/05/24 09:00 1 EACH Home Med (Home Medication) (Plecanatide (Trulance) 3 MG) AM PO 12/05/24 09:00 01/04/25 08:59 Hydralazine HCl (APRESOLine 20MG INJ) 10 mg Q6H PRN IV ADMINISTER FOR SBP > 170 12/04/24 18:00 01/03/25 17:59 12/04/24 19:13 10 MG Insulin Human Regular (humuLIN R 100 UNIT/ML 3ML) AD PRN SQ SLIDING SCALE COVERAGE 12/04/24 12:00 01/03/25 11:59 Ipratropium [place] (AtrovENT UD) 0.5 mg TID IH 12/04/24 14:00 01/03/25 13:59 12/07/24 23:17 0.5 MG Losartan Potassium (CozAAR 50 mg TAB) 50 mg AM PO 12/05/24 09:00 01/04/25 08:59 12/07/24 09:16 50 MG Magnesium Sulfate 50 ml @ 0 mls/hr PROTOCOL IV 12/06/24 07:00 01/05/25 06:59 12/06/24 17:23 0 MLS/HR Morphine Sulfate (morPHINE 4MG SYG) 2 mg Q3H PRN IV MODERATE PAIN (4-6) IF NPO 12/04/24 12:00 12/05/24 17:16 DC 12/05/24 01:03 2 MG Morphine Sulfate (morPHINE 4MG SYG) 4 mg Q3H PRN IV SEVERE PAIN (7-10) IF NPO 12/04/24 12:00 12/05/24 17:16 DC 12/05/24 13:24 4 MG Nitroglycerin (Nitrostat) 0.4 mg AD SL 12/04/24 17:30 01/03/25 17:29 Ondansetron HCl (zoFRAN 4MG INJ) 4 mg Q4H PRN IVP NAUSEA 12/04/24 12:00 01/03/25 11:59 12/06/24 20:35 4 MG Potassium Chloride/Dextrose/ Sod Cl 1,000 ml @ 75 mls/hr [id number] IV 12/04/24 12:00 12/04/24 18:16 DC Trazodone HCl (DesyREL/OlepTRO) 100 mg HS PO 12/04/24 21:00 01/03/25 20:59 12/07/24 19:48 100 MG DIAGNOSTICS / RADIOLOGY: [ ] ASSESSMENT: Complicated diverticulitis status post robotic low anterior resection with anastomosis, 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 De Oliveira, 12/04/2024 History of chronic hypoxemic respiratory failure on home supplemental O2 therapy, POA History of bipolar disorder, POA History of generalized anxiety disorder, POA History of chronic tobacco use disorder, POA COPD, POA History of pulmonary embolism x2 on chronic anticoagulation with Eliquis, POA Hypertension, POA Hyperlipidemia, POA GERD, POA History of gastritis, POA At this moment patient is pending SNF disposition once insurance approved. We will continue to monitor patient in the meantime. A.m. labs.] ATTESTATION BY PHYSICIAN I have seen and examined the patient. I reviewed the documentation, medical decision making, and treatment plan as noted by the mid-level provider above. I agree with the findings and plan of care. Saulo Schneider MD, [facility] S[employer]IOR FACILITIES MANAGER Dec 08, 2024 12:07
--- NOTE | 2024-12-08 15:43 | NUR ---
REPORT CALLED REPORT CALLED IN TO RICHA ROACH AT [facility]. TRANSPORTATION ON ITS WAY
--- NOTE | 2024-12-08 17:26 | NUR ---
PATIENT TAKEN OFF FLOOR IV LINE REMOVED, PATIENT TOLERATED PROCEDURE WELL. PATIENT QUESTIONS ANSWERED AT THIS TIME. ALL BELONGINGS RETURNED TO THE PATIENT. THE PATIENT WAS TAKEN OFF THE FLOOR BY TRANSPORTATION PERSONNEL FROM [facility]. NO APPARENT DISTRESS NOTED AT THIS TIME
--- NOTE | 2024-12-08 21:29 | PN ---
[facility] PROGRESS NOTE BACK DATED ENTRY FOR 12/07/24 Date Patient Seen: Nov Time of Visit: 13:35 Supervising Physician: Dr Smith . Flip Consulting Physician: [Hospitalist Outpatient Specialists: [ ] Inpatient Consults: [ ] PROBLEM LIST: Acute on chronic respiratory failure, POA COPD, POA O2 dependency, usually uses 2-1/2 L of oxygen per nasal cannula at home Tobacco use, smoked one pack per three days Omental mass, status post robotic partial omental resection, adhesiolysis, and anastomosis 12/04 History of pulmonary embolism, on chronic anticoagulation with Eliquis Obstructive sleep apnea suspected, undiagnosed and untreated. Recommendations: Titrate oxygen to keep saturations above 90%. Incentive spirometer, 6-10 times an hour while out of bed in awake DuoNeb scheduled q.6 hours. Budesonide nebulizer b.i.d. Continue with GI and DVT prophylaxis. Further orders per course of stay INTERVAL HISTORY: 12/05-assessed and seen patient while resting in bed with head of the bed elevated. Awake, alert, and oriented. Accompanied by patient's bedside nurse. Reviewed and discussed with patient laboratory results, vital signs, patient's health history, and medication use and treatment. Patient reports using home oxygen. Patient's vital signs are stable. Patient is afebrile. A.m. labs ordered. 12/06-examined seen the patient by myself accompanied by patient's bedside nurse. Patient awake, alert, oriented and in no acute distress. Patient denies shortness or breath fever, chills, nausea and constipation currently. Patient reports difficulty with ambulation. Vital thigh. Patient afebrile. Reviewed and discussed with the patient laboratory results vital signs, diagnostic tests results and treatment plan. No questions nor concerns afterwards. 12/07 -Seen and examined while resting in bed with the head of the bed elevated resting comfortably with no family nor friends present. Awake, alert, and oriented. Reviewed and discussed with patient laboratory study, vital signs, and diagnostic tests Patient denies shortness or breath, fever, chills, nauseousness currently. Discussed with patient once discharged [facility] treatment obstructive sleep apnea suspected, undiagnosed and untreated. Vital signs stable. Afebrile. Dispo per primary team. REVIEW OF SYSTEMS: 12 point ROS reviewed with patient. Pertinent positives mentioned above. Otherwise negative. PHYSICAL EXAM: GENERAL: alert, weak, awake oriented x 3 HEENT: EOMI, Sclera non icteric, moist mucosa NECK: Supple, no JVD, trachea midline LUNGS: Coarse lung sounds left lung aguirre HEART: Regular rate and rhythm. Normal S1 and S2, without murmurs ABD: With abdominal incision, with tenderness supported by abdominal binder. EXT: No clubbing cyanosis or edema NEURO: Alert and oriented to person, follows commands Vital Signs (last 8hr) Date Time Temp Pulse Resp B/P (MAP) Pulse Ox O2 Delivery O2 Flow Rate FiO2 12/08/24 15:43 97.7 63 20 102/51 93 Room Air 21 12/08/24 14:58 68 18 12/08/24 14:58 68 18 N/Cannula Low lpm 2.0 28 LABS: Hematology Labs: Test 12/07/24 05:00 Range/Units White Blood Count 7.7 4.8-10.8 K/uL Red Blood Count 4.95 4.50-6.20 MIL/uL Hemoglobin 14.7 14.0-18.0 g/dL Hematocrit 45.8 42-54 % Mean Corpuscular Volume 92.5 79-99 fL Mean Corpuscular Hemoglobin 29.7 27.0-33.0 pg Mean Corpuscular Hemoglobin Concent 32.1 32.0-36.0 g/dL Red Cell Distribution Width 17.3 H 11.0-15.5 % Platelet Count 157 130-400 K/uL Mean Platelet Volume 11.6 H 7.5-10.5 fL Immature Granulocyte % (Auto) 0.3 0-1 % Neutrophils (%) (Auto) 64.2 40.0-77.0 % Lymphocytes (%) (Auto) 19.7 L 21.0-51.0 % Monocytes (%) (Auto) 10.2 3.0-13.0 % Eosinophils (%) (Auto) 4.9 0.0-8.0 % Basophils (%) (Auto) 0.7 0.0-5.0 % Neutrophils # (Auto) 4.9 1.8-7.7 K/uL Lymphocytes # (Auto) 1.5 1.0-4.8 K/uL Monocytes # (Auto) 0.8 0.1-1.0 K/uL Eosinophils # (Auto) 0.38 0.00-0.70 K/uL Basophils # (Auto) 0.05 0.00-0.20 K/uL Absolute Immature Granulocyte (auto 0.02 0-1 K/uL Nucleated Red Blood Cells 0.0 0.0-0.19 % Chemistry Labs: Test 12/07/24 05:00 Range/Units Sodium Level 148 H 136-145 mmol/L Potassium Level 4.1 3.5-5.1 mmol/L Chloride Level 105 101-111 mmol/L Carbon Dioxide Level 34 H 21-32 mmol/L Blood Urea Nitrogen 5 L 7-18 mg/dL Creatinine 0.8 0.5-1.3 mg/dL Glomerular Filtration Rate Calc 95 >90 mL/min Random Glucose 118 H 70-105 mg/dL Total Calcium 8.9 8.5-10.1 mg/dL Magnesium Level 2.10 1.80-2.40 mg/dL Total Bilirubin 0.6 0.2-1.0 mg/dL Aspartate Amino Transf (AST/SGOT) 24 10-37 U/L Alanine Aminotransferase (ALT/SGPT) 30 12-78 U/L Alkaline Phosphatase 37 L 50-136 U/L Total Protein 6.9 6.0-8.3 g/dL Albumin 2.8 L 3.5-5.0 g/dL DIAGNOSTICS / RADIOLOGY RESULTS: [ ] PLAN NEURO: Minimize central acting medications as possible. Maintain fall precautions, adequate lighting during the day PULMONARY: Supplemental 02 as needed. Maintain aspiration precautions at all times CARDIOVASCULAR: Follow hemodynamics. Vital signs per facility protocol GI & NUTRITION: Continue with nutritional support. Continue stool softeners and laxatives as needed. KIDNEYS & ELECTROLYTES: Strict monitoring of intake, output and overall fluid balance. Avoid nephrotoxic medications to the extent possible. Medications to be dosed according to renal function. Monitor electrolytes and replace as needed ENDOCRINE: Maintain blood glucose between 100-180 at all times. Hypoglycemia protocol in place INFECTIOUS DISEASE: Trend temperature, WBC and procalcitonin level Follow cultures, deescalate antibiotics as soon as possible. Panculture if new onset fever ONCOLOGY/HEMATOLOGY/COAGULATION: Monitor for s/s of bleeding Monitor hemoglobin, coagulation studies as needed SKIN: Pressure ulcer prevention per facility protocol Specialty mattress ORTHO/REHAB: Continue PT/OT Prophylaxis: Continue GI and DVT prophylaxis Code Status: Full Resuscitation Disposition: TBD Discharge please refer patient to [facility], attention JUSTIN Conde [facility] Dec 08, 2024 21:29
--- NOTE | 2024-12-08 21:32 | PN ---
[facility] PROGRESS NOTE Date Patient Seen: Dec 08, 2024 Time of Visit: 21:29 Supervising Physician: Dr. 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 Recommendations: Titrate oxygen to keep saturations above 90%. Incentive spirometer, 6-10 times an hour while out of bed in awake DuoNeb scheduled q.6 hours. Budesonide nebulizer b.i.d. Continue with GI and DVT prophylaxis. Further orders per course of stay INTERVAL HISTORY: 12/05-assessed and seen patient while resting in bed with head of the bed elev ated. Awake, alert, and oriented. Accompanied by patient's bedside nurse. Reviewed and discussed with patient laboratory results, vital signs, patient's health history, and medication use and treatment. Patient reports using home oxygen. Patient's vital signs are stable. Patient is afebrile. A.m. labs ordered. 12/06-examined seen the patient by myself accompanied by patient's bedside nurse. Patient awake, alert, oriented and in no acute distress. Patient denies shortness or breath fever, chills, nausea and constipation currently. Patient reports difficulty with ambulation. Vital thigh. Patient afebrile. Reviewed and discussed with the patient laboratory results vital signs, diagnostic tests results and treatment plan. No questions nor concerns afterwards. 12/07 -Seen and examined while resting in bed with the head of the bed elevated resting comfortably with no family nor friends present. Awake, alert, and oriented. Reviewed and discussed with patient laboratory study, vital signs, and diagno stic tests Patient denies shortness or breath, fever, chills, nauseousness currently. Discussed with patient once discharged to follow up with [facility] for the treatment obstructive sleep apnea suspected, undiagnosed and untreated. Vital signs stable. Afebrile. Dispo per primary team. 12/08-examined and assess patient myself, resting on top of bed high Chong's position watching television resting. Patient denies shortness or breath, fever, chills diarrhea chest pain currently. Hemodynamically stable. Afebrile. Accompanied by patient's bedside nurse, nursing staff report no adverse events occurring overnight impacting the patient. Reviewed and discussed with patient vital signs, laboratory results, medications being used and once discharged from residential facility to follow up with [facility] for the treatment as an outpatient for obstructive sleep apnea suspected undiagnosed and untreated. REVIEW OF SYSTEMS: 12 point ROS reviewed with patient. Pertinent positives mentioned above. Otherwise negative. PHYSICAL EXAM: GENERAL: alert, weak, awake oriented x 3 HEENT: EOMI, Sclera non icteric, moist mucosa NECK: Supple, no JVD, trachea midline LUNGS: Coarse lung sounds left lung aguirre HEART: Regular rate and rhythm. Normal S1 and S2, without murmurs ABD: With abdominal incision, with tenderness supported by abdominal binder. EXT: No clubbing cyanosis or edema NEURO: Alert and oriented to person, follows commands Vital Signs (last 8hr) Date Time Temp Pulse Resp B/P (MAP) Pulse Ox O2 Delivery O2 Flow Rate FiO2 12/08/24 15:43 97.7 63 20 102/51 93 Room Air 21 12/08/24 14:58 68 18 12/08/24 14:58 68 18 N/Cannula Low lpm 2.0 28 LABS: Hematology Labs: Test 12/07/24 05:00 Range/Units White Blood Count 7.7 4.8-10.8 K/uL Red Blood Count 4.95 4.50-6.20 MIL/uL Hemoglobin 14.7 14.0-18.0 g/dL Hematocrit 45.8 42-54 % Mean Corpuscular Volume 92.5 79-99 fL Mean Corpuscular Hemoglobin 29.7 27.0-33.0 pg Mean Corpuscular Hemoglobin Concent 32.1 32.0-36.0 g/dL Red Cell Distribution Width 17.3 H 11.0-15.5 % Platelet Count 157 130-400 K/uL Mean Platelet Volume 11.6 H 7.5-10.5 fL Immature Granulocyte % (Auto) 0.3 0-1 % Neutrophils (%) (Auto) 64.2 40.0-77.0 % Lymphocytes (%) (Auto) 19.7 L 21.0-51.0 % Monocytes (%) (Auto) 10.2 3.0-13.0 % Eosinophils (%) (Auto) 4.9 0.0-8.0 % Basophils (%) (Auto) 0.7 0.0-5.0 % Neutrophils # (Auto) 4.9 1.8-7.7 K/uL Lymphocytes # (Auto) 1.5 1.0-4.8 K/uL Monocytes # (Auto) 0.8 0.1-1.0 K/uL Eosinophils # (Auto) 0.38 0.00-0.70 K/uL Basophils # (Auto) 0.05 0.00-0.20 K/uL Absolute Immature Granulocyte (auto 0.02 0-1 K/uL Nucleated Red Blood Cells 0.0 0.0-0.19 % Chemistry Labs: Test 12/07/24 05:00 Range/Units Sodium Level 148 H 136-145 mmol/L Potassium Level 4.1 3.5-5.1 mmol/L Chloride Level 105 101-111 mmol/L Carbon Dioxide Level 34 H 21-32 mmol/L Blood Urea Nitrogen 5 L 7-18 mg/dL Creatinine 0.8 0.5-1.3 mg/dL Glomerular Filtration Rate Calc 95 >90 mL/min Random Glucose 118 H 70-105 mg/dL Total Calcium 8.9 8.5-10.1 mg/dL Magnesium Level 2.10 1.80-2.40 mg/dL Total Bilirubin 0.6 0.2-1.0 mg/dL Aspartate Amino Transf (AST/SGOT) 24 10-37 U/L Alanine Aminotransferase (ALT/SGPT) 30 12-78 U/L Alkaline Phosphatase 37 L 50-136 U/L Total Protein 6.9 6.0-8.3 g/dL Albumin 2.8 L 3.5-5.0 g/dL DIAGNOSTICS / RADIOLOGY RESULTS: [ ] PLAN NEURO: Minimize central acting medications as possible. Maintain fall precautions, adequate lighting during the day PULMONARY: Supplemental 02 as needed. Maintain aspiration precautions at all times CARDIOVASCULAR: Follow hemodynamics. Vital signs per facility protocol GI & NUTRITION: Continue with nutritional support. Continue stool softeners and laxatives as needed. KIDNEYS & ELECTROLYTES: Strict monitoring of intake, output and overall fluid balance. Avoid nephrotoxic medications to the extent possible. Medications to be dosed according to renal function. Monitor electrolytes and replace as needed ENDOCRINE: Maintain blood glucose between 100-180 at all times. Hypoglycemia protocol in place INFECTIOUS DISEASE: Trend temperature, WBC and procalcitonin level Follow cultures, deescalate antibiotics as soon as possible. Panculture if new onset fever ONCOLOGY/HEMATOLOGY/COAGULATION: Monitor for s/s of bleeding Monitor hemoglobin, coagulation studies as needed SKIN: Pressure ulcer prevention per facility protocol Specialty mattress ORTHO/REHAB: Continue PT/OT Prophylaxis: Continue GI and DVT prophylaxis Code Status: Full Resuscitation Disposition: TBD Discharge please refer patient to [facility], attention JUSTIN Conde [facility] Dec 08, 2024 21:32
== END 2024-12-08 17:35 | DRG 329 ==
LOC: DAHIP 12-04 07:30 → 3BH 12-04 17:15
PROVIDERS: ADMIT Surgery; ATTEND Surgery
PROC: 0DBN4ZZ Excision of Sigmoid Colon, Percutaneous Endoscopic Approach (ICD-10-PCS; 2024-12-04)
PROC: 0DNW4ZZ Release Peritoneum, Percutaneous Endoscopic Approach (ICD-10-PCS; 2024-12-04)
PROC: 4A1BXSH Monitoring of Gastrointestinal Vascular Perfusion using Indocyanine Green Dye, External Approach (ICD-10-PCS; 2024-12-04)
PROC: 0DBU4ZZ Excision of Omentum, Percutaneous Endoscopic Approach (ICD-10-PCS; principal; 2024-12-04 12:21)
PROC: 0DBP4ZZ Excision of Rectum, Percutaneous Endoscopic Approach (ICD-10-PCS; 2024-12-04 12:21)
PROC: 0DJD8ZZ Inspection of Lower Intestinal Tract, Via Natural or Artificial Opening Endoscopic (ICD-10-PCS; 2024-12-04 12:21)
PROC: 8E0W4CZ Robotic Assisted Procedure of Trunk Region, Percutaneous Endoscopic Approach (ICD-10-PCS; 2024-12-04 12:21)
DX: K57.32 Diverticulitis of large intestine without perforation or abscess without bleeding (principal); J96.21 Acute and chronic respiratory failure with hypoxia; K21.9 Gastro-esophageal reflux disease without esophagitis; J44.9 Chronic obstructive pulmonary disease, unspecified; I10 Essential (primary) hypertension; E78.5 Hyperlipidemia, unspecified; F41.1 Generalized anxiety disorder; F31.9 Bipolar disorder, unspecified; K66.0 Peritoneal adhesions (postprocedural) (postinfection); Z79.01 Long term (current) use of anticoagulants; Z86.711 Personal history of pulmonary embolism; Z87.891 Personal history of nicotine dependence; Z99.81 Dependence on supplemental oxygen
CPT/HCPCS: 36415; 45330; 80048; 80053; 80305; 82948; 83735; 84132; 85025; 85610; 85730; 86850; 86900; 86901; 88305; 88307; 93005; 94640; 94664; A4344; A4450; G0378; J0330; J0360; J1100; J1335; J1650; J2003; J2250; J2270; J2371; J2405; J2704; J3010; J3475; J3480; J3490; J7030; J7042; J7120; A4213; A4215; A4216; A4221; A4222; A4223; A4600; A4649; A4663; A4930; A6260; C1769; J0665; J1308; Q4148

== ENCOUNTER 2024-12-24 10:43 | Emergency (ER) | payer OTHER, MEDICAID ==
[~2024-12-24] VITALS: Ht 182.9 cm; Wt 98.0 kg
[~2024-12-24 10:43] MED LIST changes: -CARV6.25 PO; +IRON PO; +LINA290C PO; +NITR0.4T50 SL; +ONDA-243 PO; -TRAZ-187 PO
--- NOTE | 2024-12-24 10:51 | ERN ---
ED Note History of Present Illness Stated Complaint: MULTIPLE COMPLAINTS Chief Complaint: Multiple Complaints Time Seen by MD: 10:44 Dictation: PATIENT IS A 69-YEAR-OLD MALE COMING IN TODAY WITH COMPLAINTS OF GENERALIZED BODY WEAKNESS NAUSEA VOMITING FOR THE LAST WEEK AND A HALF. HE HAD PRIOR SURGERY BY FOR DIVERTICULITIS ON 12/04/2024. HE IS ALSO COMPLAINING OF A GENERALIZED HEADACHE HE HAS HAD FOR A WEEK HE TOOK ADVIL THIS MORNING IT DID NOT GO AWAY SO HE CAME TO THE EMERGENCY ROOM. Allergies: Coded Allergies: No Known Drug Allergies (Verified Allergy, Unknown, 06/07/21) Home Meds Reported Medications Ondansetron (Ondansetron Odt) 4 Mg Tab.rapdis, 4 MG PO AD for NAUESA, TAB 12/02/24 Linaclotide (Linzess) 290 Mcg Capsule, 290 MCG PO AD for CONSTIPATION , CAP 12/02/24 Nitroglycerin (Nitroglycerin) 0.4 Mg Tab.subl, 0.4 MG SL AD for CHEST PAIN, TAB.SL 12/02/24 [Iron] No Conflict Check, 45 MG PO AM 12/02/24 Alprazolam (Alprazolam) 0.5 Mg Tablet, 1 TAB PO [id number] PRN for ANXIETY/AGITATION for 30 Days, #60 TAB 0 Refills 10/13/24 Gabapentin (Neurontin) 300 Mg Capsule, 1 CAP PO TID for 30 Days, #90 CAP 0 Refills 10/13/24 Buspirone HCl (Buspirone HCl) 30 Mg Tablet, 30 MG PO TID, TAB 10/13/24 Apixaban (Eliquis) 5 Mg Tablet, 1 TAB PO BID for 30 Days, #60 TAB 0 Refills 10/13/24 Atorvastatin Calcium (LIPITOR) 40 Mg Tablet, 40 MG PO DAILY, TAB 03/16/22 Past Medical History Past Medical History: Diverticulitis, High Cholesterol, Hypertension Additional Past Medical Hx: PE, LOWER EXT DVT, PULMONARY HTN. Surgical History: Other Surgical History Other: HERNIA Social History: Negative, Lives with family RN Note Reviewed/Agreed w/PFSH: Yes Review of System Dictation CONSTITUTIONAL: NEGATIVE EXCEPT FOR HPI GB W HEAD/FACE: NEGATIVE EXCEPT FOR HPI EENT: NEGATIVE EXCEPT FOR HPI RESPIRATORY: NEGATIVE EXCEPT FOR HPI GASTROINTESTINAL/ABDOMINAL: NEGATIVE EXCEPT FOR HPI ABDOMINAL PAIN WITH NAUSEA VOMITING GENITOURINARY: NEGATIVE EXCEPT FOR HPI MUSCULOSKELETAL: NEGATIVE EXCEPT FOR HPI INTEGUMENTARY: NEGATIVE EXCEPT FOR HPI NEUROLOGICAL/PSYCH: NEGATIVE EXCEPT FOR HPI GENERALIZED HEADACHE HEMATOLOGIC/LYMPHATIC: NEGATIVE EXCEPT FOR HPI ALL SYSTEMS NEGATIVE, EXCEPT NOTED ABOVE. 13 POINT REVIEW OF SYSTEMS ASSESSED AND ALL NEGATIVE EXCEPT FOR ABOVE. Initial Vital Sign VS Vital Signs Date Time Temp Pulse Resp B/P (MAP) Pulse Ox O2 Delivery O2 Flow Rate FiO2 12/24/24 10:43 98.1 71 16 147/100 98 Room Air 12/24/24 13:15 0 21 Physical Exam Dictation VITAL SIGNS REVIEWED GENERAL APPEARANCE: ALERT, ORIENTED X 3, MODERATE ACUTE DISTRESS, WELL DEVELOPED, NOURISHED. HEAD AND FACE: NON-TRAUMATIC. EYES: PERRL, PINK CONJUNCTIVAS, EYELID NO TRAUMA, ANTERIOR CHAMBER WITH ARCUS SENILIS. EARS: PINNAS INTACT AND NO SIGNS OF TRAUMA OR ERYTHEMA EAR CANALS CLEAR AND NO DISCHARGE TM NO ERYTHEMA NOSE: NO DISCHARGE, NO BLEEDING. OROPHARYNX: MOUTH NORMAL, TONGUE PINK, PHARYNX CLEAR,NO ERYTHEMA, TONSILS NO EXUDATES, NO ABSCESSES NOTED, MUCOUS MEMBRANE MOIST NECK: SUPPLE, NON-TENDER, NO THYROMEGALY, NO MASSES, NO JVD, NO BRUITS BREAST:DEFERRED CHEST:NO TENDERNESS, NO CREPITUS, NO PARADOXICAL MOVEMENT, NO RETRACTIONS LUNGS:CLEAR, WELL-VENTILATED, SYMMETRIC, NO RALES, NO WHEEZING, NO RHONCHI, NO STRIDOR, GOOD BREATH SOUNDS BILATERALLY HEART: REGULAR RATE, REGULAR RHYTHM, NO MURMUR, NO GALLOPS VASCULAR: NO PERIPHERAL EDEMA, ABDOMEN: SOFT, POSITIVE BOWEL SOUNDS, NONDISTENDED, NO GUARDING, NONTENDER, NO REBOUND, NO MASSES NO HEPATOMEGALY, NO SPLENOMEGALY, NO JULIO'S SIGN, NO HERNIAS. DIFFUSE ABDOMINAL PAIN WITH DRESSING IN PLACE RECTAL: DEFERRED GENITAL: DEFERRED NEUROLOGICAL: NORMAL SPEECH, MOTOR FUNCTION INTACT, SENSORY FUNCTION INTACT MUSCULOSKELETAL: NECK NONTENDER, FULL RANGE OF MOTION, BACK NONTENDER, FULL RANGE OF MOTION, EXTREMITIES: NONTENDER, FULL RANGE OF MOTION SKIN: COLOR PINK, DRY, NO TURGOR, NO RASH, NO LACERATIONS, NO ABRASIONS, NO CONTUSIONS. LYMPHATIC: DEFERRED Results (Laboratory/Radiology) Laboratory/Radiology Laboratory Tests Test 12/24/24 11:06 12/24/24 12:00 White Blood Count 8.1 K/uL (4.8-10.8) Red Blood Count 5.20 MIL/uL (4.50-6.20) Hemoglobin 15.4 g/dL (14.0-18.0) Hematocrit 47.9 % (42-54) Mean Corpuscular Volume 92.1 fL (79-99) Mean Corpuscular Hemoglobin 29.6 pg (27.0-33.0) Mean Corpuscular Hemoglobin Concent 32.2 g/dL (32.0-36.0) Red Cell Distribution Width 16.3 % (11.0-15.5) H Platelet Count 281 K/uL (130-400) Mean Platelet Volume 12.3 fL (7.5-10.5) H Immature Granulocyte % (Auto) 0.2 % (0-1) Neutrophils (%) (Auto) 67.1 % (40.0-77.0) Lymphocytes (%) (Auto) 19.4 % (21.0-51.0) L Monocytes (%) (Auto) 11.1 % (3.0-13.0) Eosinophils (%) (Auto) 1.6 % (0.0-8.0) Basophils (%) (Auto) 0.6 % (0.0-5.0) Neutrophils # (Auto) 5.4 K/uL (1.8-7.7) Lymphocytes # (Auto) 1.6 K/uL (1.0-4.8) Monocytes # (Auto) 0.9 K/uL (0.1-1.0) Eosinophils # (Auto) 0.13 K/uL (0.00-0.70) Basophils # (Auto) 0.05 K/uL (0.00-0.20) Absolute Immature Granulocyte (auto 0.02 K/uL (0-1) Nucleated Red Blood Cells 0.0 % (0.0-0.19) Sodium Level 135 mmol/L (136-145) L Potassium Level 5.3 mmol/L (3.5-5.1) H Chloride Level 99 mmol/L (101-111) L Carbon Dioxide Level 30 mmol/L (21-32) Blood Urea Nitrogen 19 mg/dL (7-18) H Creatinine 0.9 mg/dL (0.5-1.3) Glomerular Filtration Rate Calc 91 mL/min (>90) Random Glucose 101 mg/dL (70-105) Total Calcium 9.7 mg/dL (8.5-10.1) Troponin I High Sensitivity 8 ng/L (4-75) Lipase 32 U/L (16-77) Urine Color YELLOW (YELLOW) Urine Appearance CLOUDY (CLEAR) H Urine pH 5.5 (5.0-8.0) Urine Specific [place] 1.023 (1.001-1.031) Urine Protein 20 mg/dL (NEGATIVE) H Urine Glucose (UA) NEGATIVE mg/dL (NEGATIVE) Urine Ketones NEGATIVE mg/dL (NEGATIVE) Urine Occult Blood NEGATIVE (NEGATIVE) Urine Nitrate NEGATIVE (NEGATIVE) Urine Bilirubin NEGATIVE mg/dL (NEGATIVE) Urine Urobilinogen 0.2 mg/dL (0.2-1.0) Urine Leukocyte Esterase NEGATIVE Ky/uL Urine RBC 2-5 /HPF (0-1) H Urine WBC 2-5 /HPF (0-1) H Urine Squamous Epithelial Cells RARE /HPF (0-2) Urine Bacteria None /HPF (None Seen) Urine Hyaline Casts 2-5 /LPF (0-1 /LPF) H PROCEDURE: HEAD WO - CT HEAD/BRAIN W/O CONTRAST EXAM: CT Head Without IV contrast. CLINICAL HISTORY: INTRACTABLE HEADACHE WITH NAUSEA VOMITING ONSET ONE WEEK AGO TECHNIQUE: Axial computed tomography images of the head/brain without intravenous contrast. COMPARISON: None provided. FINDINGS: BRAIN: No evidence of acute hemorrhage. No mass lesion. No CT evidence for acute territorial infarct. No midline shift or extra-axial collections. VENTRICLES: No hydrocephalus. ORBITS: The orbits are unremarkable. SINUSES AND MASTOIDS: Mucosal hypertrophy in left maxillary sinus. Rest paranasal sinuses and mastoid air cells are clear. BONES: No fracture. SOFT TISSUES: Unremarkable. IMPRESSION: No acute intracranial abnormality. /[place] REASON: NAUSEA VOMITING OR WEEK AND A HALF. HISTORY OF DIVERTICULAR SURGERY ORDERING PHYSICIAN: WYATT LEWIS PROCEDURE: ABD PEL W - CT ABDOMEN/PELVIS W/CONTRAST EXAM: CT ABDOMEN AND PELVIS WITH IV CONTRAST CLINICAL HISTORY: Nausea and vomiting for one and a half weeks. History of diverticular surgery. TECHNIQUE: Axial CT images of the abdomen and pelvis obtained with intravenous contrast. CONTRAST: With IV contrast. COMPARISON: Compared to previous CT report dated on October 21, 2024.FINDINGS: LUNG BASES: Clear. No pleural effusion. LIVER: Unremarkable. GALLBLADDER AND BILE DUCTS: Normal gallbladder. No calculi or biliary dilatation. PANCREAS: Unremarkable. SPLEEN: Unremarkable. ADRENAL GLANDS: Unremarkable. KIDNEYS, URETERS, AND BLADDER: 3.0 cm right renal lower pole cortical cyst. Presumed recently excreted bilateral renal calculi. No hydronephrosis or hydroureter. Urinary bladder appears unremarkable. STOMACH AND BOWEL: Unremarkable appearance. No obstruction, enteritis, or colitis. Subtotal sigmoid resection. Postsurgical changes within the ventral abdominal wall evident by edema and a small locule of extraluminal air within the ventral lower abdomen. APPENDIX: No CT evidence of acute appendicitis. LYMPH NODES: No lymphadenopathy. REPRODUCTIVE ORGANS: Prostate is enlarged, measuring 4.1 ??? 4.9 ??? 4.4 cm (volume ? 46 mL). Seminal vesicles unremarkable. VASCULATURE: Abdominal aorta is tortuous with mild calcific atherosclerotic changes noted in the intra-abdominal aorta. No aneurysm. Small right anterior abdominal wall fat-containing hernia. Small umbilical fat-containing hernia. BONES: Degenerative osseous changes noted. No acute or aggressive osseous lesion. Hemangioma in L1 vertebra. Significant eventration of the left hemidiaphragm. IMPRESSION: 1. No acute intraabdominal or pelvic pathology. 2. Postsurgical changes from subtotal sigmoid resection with small locule of extraluminal air in ventral lower abdomen. /[place] Labs Reviewed?: Yes EKG: (+) NSR EKG Comment: NORMAL SINUS RHYTHM/HEART RATE 70/AXIS NORMAL/NO ECTOPY ED Course ED Course Orders Procedure Category Date Status Time Cbc With Differential LAB 12/24/24 Complete 10:49 Troponin I High LAB 12/24/24 Complete Sensitivity 10:49 Urinalysis Profile LAB 12/24/24 Complete 10:49 Ct Abdomen/Pelvis CT 12/24/24 Resulted W/Contrast 10:49 12 Lead Ekg Tracing- EKG 12/24/24 Complete Technical 10:49 0.9%Nacl 1000ml (Ns PHA 12/24/24 Complete 1000ml) 11:00 Ondansetron 4mg Inj PHA 12/24/24 Complete (Zofran 4mg Inj) 11:00 Lipase LAB 12/24/24 Complete 10:49 Basic Metabolic Panel LAB 12/24/24 Complete 10:49 Morphine 2mg Syg PHA 12/24/24 Complete (Morphine 2mg Syg) 11:00 Ct Head/Brain W/O CT 12/24/24 Resulted Contrast 11:06 Iohexol (Omnipaque) PHA 12/24/24 Complete 14:35 Current Medications Medications (Trade) Dose Ordered Sig/[place] Route PRN Reason Start Time Stop Time Status Last Admin Dose Admin Iohexol (Omnipaque) 75 ml STK-MED ONCE IV 12/24/24 14:35 12/24/24 14:35 DC Morphine Sulfate (morPHINE 2MG SYG) 2 mg ONCE ONCE IVP 12/24/24 11:00 12/24/24 11:01 DC 12/24/24 13:05 Ondansetron HCl (zoFRAN 4MG INJ) 4 mg ONCE ONCE IVP 12/24/24 11:00 12/24/24 11:01 DC 12/24/24 13:05 Sodium Chloride 1,000 ml @ 0 mls/hr ONCE ONCE IV 12/24/24 11:00 12/24/24 11:01 DC 12/24/24 13:05 Vital Signs Date Time Temp Pulse Resp B/P (MAP) Pulse Ox O2 Delivery O2 Flow Rate FiO2 12/24/24 13:15 96.6 65 13 143/87 96 Room Air* 0 21 12/24/24 10:43 98.1 71 16 147/100 98 Room Air 1735/WENT TO RE-EVALUATE PATIENT AND HE WAS EATING A SANDWICH AND EATING CHIPS AND DRINKING WATER. HE STATES HIS HEADACHE IS BETTER, HE IS READY TO GO HOME HE IS AWARE THAT HIS WORKUP FOR POSSIBLE CVA/SBO ABSCESS ETC. HAS ALL NEGATIVE WISHES TO GO HOME. HEART Score Response (Comments) Value History: Low suspicion (0) 0 Age: > 65yrs (+2) 2 Risk Factors: 1-2 risk factors (+1) 1 Initial Troponin: Normal limit (0) 0 Total 3 Medical Decision Making MDM MDM: DIFFERENTIAL DIAGNOSIS: SBO/DIVERTICULITIS/SURGICAL ABSCESS/ACS/AMI/CVA/SUBDURAL HEMATOMA/NAUSEA VOMITING/ELECTROLYTE IMBALANCE/ RATIONALE: TESTS CONSIDERED AND ORDERED SECONDARY TO SHARED DECISION MAKING INCLUDE: DEHYDRATION RADIOLOGY/LABS/EKG PREVIOUS OUTSIDE RECORDS REVIEWED: OLD ER VISITS. RISK OF COMPLICATION AND/OR MORBIDITY OR MORTALITY OF PATIENT MANAGEMENT: NONE MEDICATIONS-PER MEDICATION RECONCILIATION NEED FOR HOSPITALIZATION: PATIENT DOES NOT MEET CRITERIA FOR HOSPITALIZATION. NONE NEED FOR EMERGENCY MAJOR/MINOR SURGERY: NO THERE ARE NO SOCIAL CONCERNS WITH THIS PATIENT. PRESCRIPTION DRUG MANAGEMENT ZOFRAN PRESCRIPTIONS WILL INCLUDE SYMPTOMATIC CARE PATIENT'S PRIOR EXTERNAL MEDICAL RECORDS FROM OTHER ER VISITS WERE REVIEWED BY ME INDICATED. PRIOR TESTING AND RESULTS FROM PREVIOUS VISITS WERE REVIEWED. PRIOR TESTS WERE TAKEN INTO ACCOUNT WITH MEDICAL DECISION MAKING AND RESOURCE UTILIZATION, INDEPENDENT HISTORIAN/HISTORIANS WERE USED TO OBTAIN COMPLETE MEDICAL HISTORY. I INDEPENDENTLY INTERPRETED THE TEST THAT WERE PERFORMED, RESULTS WERE REVIEWED BY ME AND CONSIDERED FINDINGS ON RADIOLOGY IF ORDERED. MEDICAL MANAGEMENT AND EXAMINATION INTERPRETATION DISCUSSIONS WERE HAD BY ME WITH OTHER QUALIFIED HEALTHCARE PROFESSIONALS INDICATED FOR THE PATIENT'S CARE. DX & DISP Disposition: Discharge Departure Impression: Primary Impression: Nausea & vomiting Additional Impressions: Hyponatremia, Hyperkalemia, Acute headache Condition: Stable Scripts Ondansetron (Ondansetron Odt) 4 Mg Tab.rapdis 4 MG PO Q6HPRN PRN for nausea, #16 TAB 0 Refills Prov: WYATT LEWIS 12/24/24 Additional Instructions: FOLLOW-UP WITH PRIMARY CARE PROVIDER IN 1 TO 2 DAYS. TAKE MEDICATIONS DIRECTED HERE IN THE EMERGENCY ROOM. OKAY TO CONTINUE HOME MEDICATIONS UNLESS OTHERWISE DISCUSSED DURING YOUR VISIT IN THE EMERGENCY ROOM TODAY. RETURN TO YOUR NEAREST EMERGENCY ROOM IF SYMPTOMS WORSEN OR IF THERE IS NO IMPROVEMENT. CALL 911 IF YOU NEED IMMEDIATE ASSISTANCE. TAKE TYLENOL OR MOTRIN [id number] NEEDED AND IF NO CONTRAINDICATIONS ARE PRESENT. INCREASE ORAL HYDRATION. A WOUND CULTURE OR URINE CULTURE WAS ORDERED HERE IN THE EMERGENCY ROOM DEPARTMENT PLEASE FOLLOW-UP WITH PRIMARY CARE PROVIDER AND ADVISE THEM TO GET REPEAT PORTS FROM OUR FACILITY. IF YOU HAD ANY JONATHON WRAP/SPLINTS THAT WERE APPLIED HERE, PLEASE DO NOT REMOVE THEM UNTIL YOU SEE YOUR PRIMARY CARE OR SPECIALTY. TAKE TYLENOL [id number] NEEDED FOR HEADACHE. TAKE ZOFRAN NEEDED FOR NAUSEA VOMITING AND SEE YOUR PRIMARY CARE DOCTOR FOR FOLLOW UP AND MANAGEMENT. Referrals: BECKY GUADALUPE MD (PCP) Time of Disposition: 17:39 I have reviewed the case, and I agree with, Diagnosis and Plan WYATT LEWIS Dec 24, 2024 10:50
--- NOTE | 2024-12-24 10:59 | EKG ---
[facility] Test Date: 2024-12-24 Test Time: 10:57:41 Pat Name: OMARI MITCHELL Department: [facility] Room: Gender: M High Value Associate: [id number] : 1955 Requested By: WYATT LEWIS Order Number: [id number] Reading MD: Danae Francisco Measurements Intervals [place] Rate: 70 P: 64 IA: 172 QRS: 73 QRSD: 85 T: 50 QT: 379 QTc: 411 Interpretive Statements Sinus rhythm Compared to ECG 12/02/2024 12:19:55 No significant changes Electronically Signed On 12-26-2024 12:38:46 BEVELER by Danae Francisco Please click the below link to view image of tracing.
[2024-12-24 11:13] LABS: IMMATURE GRANULOCYTE ABSOLUTE 0.02 K/uL (0-1); NUCLEATED RED BLOOD CELLS 0.0 % (0.0-0.19); PLATELET COUNT (AUTO) 281 K/uL (130-400); RED BLOOD CELL COUNT(AUTO) 5.20 MIL/uL (4.50-6.20); RED CELL DISTRIBUTION WIDTH 16.3 % (11.0-15.5); WHITE BLOOD COUNT (AUTO) 8.1 K/uL (4.8-10.8)
[2024-12-24 11:19] LABS: CREATININE 0.9 mg/dL (0.5-1.3); GLOMERULAR FILTR. RATE CALC 91.0 mL/min (>90); GLUCOSE,RANDOM 101.0 mg/dL (70-105); SODIUM SERUM 135.0 mmol/L (136-145); UREA NITROGEN, BLOOD 19.0 mg/dL (7-18)
--- NOTE | 2024-12-24 12:03 | NUR ---
PT JUST NOW PLACED IN ED BED 14. BEING CHANGED INTO HOSPITAL GOWN AND PLACED ON PULLBOAT ENGINEER BY ROUTE RETURNER STUDENTS.
[2024-12-24 12:16] LABS: APPEARANCE,URINE CLOUDY (CLEAR); GLUCOSE, URINE (UA) NEGATIVE (NEGATIVE); LEUKOCYTE ESTERASE ,URINE NEGATIVE Leu/uL (NEGATIVE); NITRATE,URINE NEGATIVE (NEGATIVE); OCCULT BLOOD,URINE NEGATIVE (NEGATIVE)
[2024-12-24 12:20] LABS: ADD UA MICROSCOPIC YES
[2024-12-24 12:21] LABS: SQUAMOUS EPITHELIAL CELL,UR RARE /HPF (0-2)
[2024-12-24] MEDS: 0.9%NACL 1000ML 1,000 ML IV ONE (13:05)
[2024-12-24 13:15] VITALS: BP 143/87; PULSE 65; RESP 13; TEMP 96.7; O2SAT 96
[2024-12-24] MEDS ORDERED: IOHEXOL-350 75 ML VIAL IV ONE (14:35)
--- NOTE | 2024-12-24 15:35 | HMCIMG ---
EXAM: CT Head Without IV contrast. CLINICAL HISTORY: INTRACTABLE HEADACHE WITH NAUSEA VOMITING ONSET ONE WEEK AGO TECHNIQUE: Axial computed tomography images of the head/brain without intravenous contrast. COMPARISON: None provided. FINDINGS: BRAIN: No evidence of acute hemorrhage. No mass lesion. No CT evidence for acute territorial infarct. No midline shift or extra-axial collections. VENTRICLES: No hydrocephalus. ORBITS: The orbits are unremarkable. SINUSES AND MASTOIDS: Mucosal hypertrophy in left maxillary sinus. Rest paranasal sinuses and mastoid air cells are clear. BONES: No fracture. SOFT TISSUES: Unremarkable. IMPRESSION: No acute intracranial abnormality. /[place]
--- NOTE | 2024-12-24 16:10 | HMCIMG ---
EXAM: CT ABDOMEN AND PELVIS WITH IV CONTRAST CLINICAL HISTORY: Nausea and vomiting for one and a half weeks. History of diverticular surgery. TECHNIQUE: Axial CT images of the abdomen and pelvis obtained with intravenous contrast. CONTRAST: With IV contrast. COMPARISON: Compared to previous CT report dated on October 21, 2024.FINDINGS: LUNG BASES: Clear. No pleural effusion. LIVER: Unremarkable. GALLBLADDER AND BILE DUCTS: Normal gallbladder. No calculi or biliary dilatation. PANCREAS: Unremarkable. SPLEEN: Unremarkable. ADRENAL GLANDS: Unremarkable. KIDNEYS, URETERS, AND BLADDER: 3.0 cm right renal lower pole cortical cyst. Presumed recently excreted bilateral renal calculi. No hydronephrosis or hydroureter. Urinary bladder appears unremarkable. STOMACH AND BOWEL: Unremarkable appearance. No obstruction, enteritis, or colitis. Subtotal sigmoid resection. Postsurgical changes within the ventral abdominal wall evident by edema and a small locule of extraluminal air within the ventral lower abdomen. APPENDIX: No CT evidence of acute appendicitis. LYMPH NODES: No lymphadenopathy. REPRODUCTIVE ORGANS: Prostate is enlarged, measuring 4.1 ??? 4.9 ??? 4.4 cm (volume ? 46 mL). Seminal vesicles unremarkable. VASCULATURE: Abdominal aorta is tortuous with mild calcific atherosclerotic changes noted in the intra-abdominal aorta. No aneurysm. Small right anterior abdominal wall fat-containing hernia. Small umbilical fat-containing hernia. BONES: Degenerative osseous changes noted. No acute or aggressive osseous lesion. Hemangioma in L1 vertebra. Significant eventration of the left hemidiaphragm. IMPRESSION: 1. No acute intraabdominal or pelvic pathology. 2. Postsurgical changes from subtotal sigmoid resection with small locule of extraluminal air in ventral lower abdomen. /[place]
[2024-12-24] MEDS ORDERED: ONDA-243 PO (17:39)
== END 2024-12-24 18:10 | disposition home or self-care (01) ==
LOC: EDH 10:43
DX: R11.2 Nausea with vomiting, unspecified (principal); E87.5 Hyperkalemia; E87.1 Hypo-osmolality and hyponatremia; R51.9 Headache, unspecified; E78.00 Pure hypercholesterolemia, unspecified; I10 Essential (primary) hypertension; Z79.01 Long term (current) use of anticoagulants; Z79.899 Other long term (current) drug therapy
CPT/HCPCS: 99285; 70450; 96374; 96361; 96375; 84484; 80048; 83690; 85025; 81001; 36415; 74177; 93005; J2270; J7030; J2405; Q9967